=== PATIENT | female | born 1955 | race Caucasian/White ===

== ENCOUNTER 2016-12-22 05:11 | Inpatient (IN) | payer BC ==
[~2016-12-22] VITALS: Ht 165.1 cm; Wt 84.0 kg
[2016-12-22] VITALS (51 sets, daily range): BP systolic 108–153; BP diastolic 57–79; PULSE 60–87; RESP 12–21; TEMP 98.3; Ht 165.1 cm; Wt 84.0 kg
[2016-12-22] MEDS ORDERED: SOD CHLORIDE 0.9% 1,000 ML IV STA (05:23)
[2016-12-22] MEDS ORDERED: PROPOFOL 1000 MG INJ ONE (05:30)
[2016-12-22] MEDS ORDERED: PROPOFOL 100 ML IV ONE (05:30)
[2016-12-22 05:35] LABS: ADD SCAN DIFF NO
[2016-12-22 05:38] LABS: ABNORMAL IP MESSAGE 1; BASOPHIL # 0.1 10^3/ul (0.0-0.1); BASOPHILS % 0.6 % (0.0-2.0); EOSINOPHILS # 0.4 10^3/ul (0.0-0.5); EOSINOPHILS % 2.2 % (0.0-7.0); HEMATOCRIT 40.7 % (37.0-47.0); HEMOGLOBIN 13.3 g/dl (12.0-16.0); LYMPHOCYTES # 8.7 10^3/ul (0.8-2.9); MEAN CORPUSCULAR HEMOGLOBIN 30.3 pg (29.0-33.0); MEAN CORPUSCULAR HGB CONC 32.7 g/dl (32.0-37.0); MEAN CORPUSCULAR VOLUME 92.7 fl (82.0-101.0); MEAN PLATELET VOLUME 11.4 fl (7.4-10.4); MONOCYTE # 0.9 10^3/ul (0.3-0.9); MONOCYTES % 5.9 % (0.0-11.0); NEUTROPHIL # 5.5 10^3/ul (1.6-7.5); PLATELET COUNT 269 10^3/UL (140-415); RED BLOOD COUNT 4.39 10^6/ul (4.20-5.40); RED CELL DISTRIBUTION WIDTH 11.9 % (11.5-14.5); WHITE BLOOD COUNT 15.6 10^3/ul (4.8-10.8)
[2016-12-22 05:52] LABS: ALBUMIN 4.2 g/dl (3.3-4.9)
[2016-12-22 05:53] LABS: CHLORIDE 112 mmol/L (97-110); INR 0.89; POTASSIUM 3.5 mmol/L (3.5-5.1); PT RATIO 0.9; SODIUM 143 mmol/L (135-144)
[2016-12-22 05:54] LABS: PARTIAL THROMBOPLASTIN TIME 27.7 Sec (25.0-35.0)
[2016-12-22 05:55] LABS: ALKALINE PHOSPHATASE 71 IU/L (42-121); ANION GAP 9 (8-16); ASPARTATE AMINO TRANSFERASE 30 IU/L (15-46); BILIRUBIN,INDIRECT 0.5 mg/dl (0-1.1); BILIRUBIN,TOTAL 0.5 mg/dl (0.2-1.3); BLOOD UREA NITROGEN 15 mg/dl (7-20); CARBON DIOXIDE 26 mmol/L (21-31); CREATININE 0.88 mg/dl (0.44-1.00); TOTAL PROTEIN 7.2 g/dl (6.1-8.1)
[2016-12-22 05:56] LABS: ALANINE AMINOTRANSFERASE 51 IU/L (13-69); CALCIUM 9.2 mg/dl (8.4-10.2); GLUCOSE 215 mg/dl (70-220)
[2016-12-22 06:03] LABS: ACETAMINOPHEN < 10.0 ug/ml (10.0-30.0); ETHANOL < 10.0 mg/dl; SALICYLATE < 1.0 mg/dl (5.0-30.0)
--- NOTE | 2016-12-22 06:07 | EN ---
Date/Time of Note Date/Time of Note DATE: 12/22/16 TIME: 06:03 ER Progress Note The patient arrived to the ER with altered mental status. She was last seen well at 12 AM. The woke up around 4 AM and noted the was altered and having trouble breathing, foaming at the mouth. She was brought in by the EMS, Accu-Chek was within normal range according the surveying crew stake runner. She was admitted intubated without any difficulty She was treated with etomidate 20 mg IV, rocuronium 80 mg IV Endotracheal Intubation by me: Pre assessment performed. See preceding note for details. Pre-oxygenation performed with 100% oxygen RSI: Performed w/o complication or hypoxic events. Medications as ordered. Blade: [place] Scope ET Tube: 7.5 cm Depth: 22 cm at the lip Intubation confirmed by colorimetric CO2, equal breath sounds, quiet over the stomach. Chest X-ray 1V Interpreted by me: ET tube was in the right mainstem, it was pulled back about 2 cm. Normal soft tissue, No pneumothorax. I have order for NG tube, Miner catheter, propofol drip for sedation I have now transferred the care to the oncoming physician Dr. Walsh at 6 AM CHARLES DOMINGUEZ MD December 22, 2016 06:07
--- NOTE | 2016-12-22 06:08 | RADRPT ---
PROCEDURE: CT BRAIN WITHOUT CONTRAST CLINICAL INDICATION: 61-year-old female with altered mental status. TECHNIQUE: The study was performed utilizing a GE Quantopianpeed VCT 64-slice CT scanner. Direct axia l sections were obtained from the foramen magnum to the vertex without the use of intravenous contra st material. Sagittal and coronal reformations were obtained. One or more the following dose reduct ion techniques were utilized: automated exposure control, adjustment of the mA and/or kV according t o patient's size or use of iterative reconstruction technique. The images were viewed on a PACS [facility]. CTD/vol = 45.0 mGy; Total Exam DLP = 720.2 mGy-cm. COMPARISON: None. FINDINGS: There is a large left frontoparietal ovoid intracranial hemorrhage measuring approximately 5.6 x 8.3 x 5.2 cm with surrounding edema and mass effect. There is effacement of the left lateral ventricle with uvjf-rd-sanbs midline shift of approximately 18 mm consistent with subfalcine herniation. Ther e is mild asymmetric enlargement of the right lateral ventricle which presumably is trapped. The bon y calvarium is intact. Polypoidal mucosal thickening is seen within the partially visualized inferio r right maxillary sinus. No air-fluid levels are noted. The mastoid air cells are without signific ant soft tissue. IMPRESSION: Large left frontal-parietal intracranial hemorrhage with surrounding edema and mass effect resulting in [id number]-az-zngni midline shift of 18 mm consistent with subfalcine herniation. CRITICAL RESULTS: A call report was made to [facility] ER Dr. Walsh on December 22, 2016 at 06:03 a.m.. .Meir Saleh MD, Date Time Electronically viewed and signed by .Meir Saleh MD, MD on 12/22/2016 06:07 .M/
[2016-12-22] MEDS ORDERED: LEVETIRACETAM 500 MG (PMX) 100 ML IVPB ONE (06:30)
--- NOTE | 2016-12-22 06:47 | RADRPT ---
PROCEDURE: CHEST - 1 VIEW CLINICAL INDICATION: 61-year-old female with altered level of consciousness and intubation. TECHNIQUE: A single frontal AP portable view of the chest was performed. The images were reviewed on a PACS workstation. COMPARISON: Chest x-ray July 08, 2008. FINDINGS: There is an endotracheal tube identified with the tip in the right mainstem bronchus approximately 5 mm below the az. There is a nasogastric tube visualized which extends to the distal esophagus and is looped back and extends back into the neck. The cardiomediastinal silhouette is mildly enlar ged. There is a shallow inspiration. There is mild pulmonary vascular congestion. There is bilate ral lower lung zone subsegmental atelectasis. There is no definite focal infiltrate. There is no ev idence for pneumothorax. The osseous structures are intact. IMPRESSION: 1. Endotracheal tube with the tip in the right mainstem bronchus approximate 5 mm below the az. 2. Nasogastric tube looped within the distal esophagus extending back into the neck. This should b e pulled out and replaced. 3. Shallow inspiration. 4. Mild pulmonary vascular congestion. 5. Mild bilateral lower lung zone subsegmental atelectasis. CALL REPORT: A call report was made to [facility] ER Dr. Walsh on December 22, 2016 at 06:38 a.m. .Meir Saleh MD, Date Time Electronically viewed and signed by .Meir Saleh MD, on 12/22/2016 06:46 .M/
--- NOTE | 2016-12-22 06:52 | ERA ---
ER Documentation Chief Complaint Date/Time DATE: 12/22/16 TIME: 607 Chief Complaint bib ra 39 c/o ALOC; LKW 0000, snoring resps, vomit pos aspiration HPI 61-year-old female presents to the emergency department by ambulance with altered level of consciousness. Patient is obtunded and comatose and unable to provide history. History is available for my conversations with paramedics and . Patient's last known well time was midnight on 12/21/2016. She went to bed feeling fine with no headache or significant concerns. Sometime around 4 AM, the noted "abnormal behavior." Was unclear if he was describing seizure activity. She began to vomit. She had an altered mental status and the paramedics were called. I have reviewed the thermoplastic technician pre-hospital care. Pre-hospital vital signs were reviewed. Pre-hospital diagnostic tests were reviewed. Upon arrival, patient arrived in extremis. She was apneic and decerebrate posturing. ROS All systems reviewed and are negative except as per history of present illness. Allergies Allergies: Coded Allergies: No Known Allergies (Verified Allergy, Mild, 12/22/16) PMhx/Soc History of Surgery: Yes (gallbladder removed 2006) Hx Neurological Disorder: No Hx Cardiac Disorders: Yes (htn- not medicated) Hx Miscellaneous Medical Probl: Yes (hyperglycemia- not medicated) Hx Alcohol Use: No Hx Substance Use: No Hx Tobacco Use: Yes Smoking Status: Current every day smoker FmHx Noncontributory for chief complaint with family at bedside. Physical Exam Vitals Vital Signs Date Time Temp Pulse Resp B/P Pulse Ox O2 Delivery O2 Flow Rate FiO2 12/22/16 06:30 98.3 62 20 174/107 100 Mechanical Ventilator 10.0 12/22/16 06:15 61 14 177/86 100 Mechanical Ventilator 12/22/16 06:05 63 12 100 40 12/22/16 05:55 71 14 155/82 100 Mechanical Ventilator 12/22/16 05:50 72 14 180/108 100 Mechanical Ventilator 12/22/16 05:45 75 14 207/90 100 Mechanical Ventilator 12/22/16 05:40 72 14 193/110 100 Mechanical Ventilator 12/22/16 05:35 77 14 186/95 100 Mechanical Ventilator 12/22/16 05:31 51 14 210/121 100 Mechanical Ventilator 12/22/16 05:29 97.3 68 10 210/175 100 12/22/16 05:26 48 12 169/126 100 Mechanical Ventilator 12/22/16 05:18 97.8 68 36 210/175 100 Mechanical Ventilator 12/22/16 05:15 53 12 100 100 Physical Exam GENERAL: Patient arrives in extremis. HEENT: Pupils equal, round, and reactive to light. EOMI. There is no scleral icterus. Airway intubated NECK: C-spine is soft and supple, there is no meningismus. There is no cervical lymphadenopathy. LUNGS: Patient intubated and being assisted via ventilator HEART: Regular rate and rhythm, no murmurs, clicks, rubs or gallops. ABDOMEN: Soft, non-tender, non-distended. There are bowel sounds in all four quadrants. No rebound or guarding. EXTREMITIES: There is no peripheral cyanosis or edema. No focal swelling or erythema. NEURO: Patient is status post paralysis and sedation from intubation. Upon arrival, patient was a GCS of 111. Patient had decerebrate posturing. No further purposeful movement has been noted. SKIN: There is no apparent rash or petechiae. HEME/LYMPHATIC: There is no evidence of excessive bruising or lymphedema. PSYCHIATRIC: Patient is comatose Result Diagram: 12/22/16 0525 12/22/16 0525 Results 24 hrs Laboratory Tests Test 12/22/16 05:24 12/22/16 05:25 Bedside Glucose 230mg/dL White Blood Count 15.610^3/ul Red Blood Count 4.3910^6/ul Hemoglobin 13.3g/dl Hematocrit 40.7% Mean Corpuscular Volume 92.7fl Mean Corpuscular Hemoglobin 30.3pg Mean Corpuscular Hemoglobin Concent 32.7g/dl Red Cell Distribution Width 11.9% Platelet Count 07680^3/UL Mean Platelet Volume 11.4fl Neutrophils % 35.0% Lymphocytes % 56.0% Monocytes % 5.9% Eosinophils % 2.2% Basophils % 0.6% Nucleated Red Blood Cells % 0.0/100WBC Neutrophils # 5.510^3/ul Lymphocytes # 8.710^3/ul Monocytes # 0.910^3/ul Eosinophils # 0.410^3/ul Basophils # 0.110^3/ul Nucleated Red Blood Cells # 0.010^3/ul Prothrombin Time 12.0Sec Prothrombin Time Ratio 0.9 INR International Normalized Ratio 0.89 Activated Partial Thromboplast Time 27.7Sec Sodium Level 143mmol/L Potassium Level 3.5mmol/L Chloride Level 112mmol/L Carbon Dioxide Level 26mmol/L Anion Gap 9 Blood Urea Nitrogen 15mg/dl Creatinine 0.88mg/dl Glucose Level 215mg/dl Lactic Acid Level 2.9mmol/L Calcium Level 9.2mg/dl Total Bilirubin 0.5mg/dl Direct Bilirubin 0.00mg/dl Indirect Bilirubin 0.5mg/dl Aspartate Amino Transf (AST/SGOT) 30IU/L Alanine Aminotransferase (ALT/SGPT) 51IU/L Alkaline Phosphatase 71IU/L Total Protein 7.2g/dl Albumin 4.2g/dl Globulin 3.00g/dl Albumin/Globulin Ratio 1.40 Salicylates Level < 1.0mg/dl Acetaminophen Level < 10.0ug/ml Ethyl Alcohol Level < 10.0mg/dl Current Medications Medications (Trade) Dose Ordered Sig/Ashli Route PRN Reason Start Time Stop Time Status Last Admin Dose Admin Sodium Chloride 1,000 ml @ 1,000 mls/hr Q1H STAT IV 12/22/16 05:23 12/22/16 06:22 Cancel Propofol 100 ml @ 0 mls/hr TITRATE ONCE IV 12/22/16 05:30 12/22/16 05:33 DC 12/22/16 06:05 Levetiracetam (Keppra 500 Mg/ 100ml (Pmx)) 100 ml @ 400 mls/hr ONCE ONCE IVPB 12/22/16 06:30 12/22/16 06:44 DC 12/22/16 06:40 Mannitol (Mannitol 25%) 12.5 gm ONCE ONCE IV* 12/22/16 07:00 12/22/16 07:01 Procedures/MDM Patient was taken to a room, seen and evaluated. Comfort measures were initiated. Diagnostic tests were ordered and reviewed. 3 LEAD RHYTHM STRIP: Normal sinus rhythm without ectopy EK lead EKG reviewed by myself: Normal Sinus Rhythm Normal [place] and intervals No ST elevation, depression, or T wave inversion Impression: Normal EKG RADIOLOGY: reviewed with the radiologist CONSULTATION: hospitalist was notified for admission. Neurosurgical consultation was obtained as soon as CT scan was reviewed. I have been in communication with the neurosurgeon regarding prognostic possible therapeutic options REEVALUATION: Patient is remained sedated. Blood pressure has been noted to be improving and seems to be stabilizing around 170s systolic. I would like to put the blood pressure at approximately 160 systolic. I have ordered mannitol and continue to monitor the blood pressure with further intervention is necessary. No further neurologic status improvement has been noted. MEDICAL DECISION MAKING: This is an unfortunate 61-year-old female who arrives to the emergency department after a significant intracranial event. Patient shows evidence of a significant intracranial hemorrhage with catastrophic results. Patient is required intubation for airway protection. Patient has received aggressive medical management including blood pressure control with mannitol as well as antiepileptic medications. However, patient has a significantly poor prognosis at this time given the patient's presenting neurologic features. Patient will be admitted to the intensive care unit pending further consultation with neurosurgical consultation and further conversations with his family. CRITICAL CARE: Time:>35 minutes Patient has a significant chance of clinical deterioration Treatments/Evaluations: Close monitoring and treatment of unstable vital signs, cardiorespiratory, and neurologic status, while maintaining tight balance of fluid, respiratory, and cardiac interventions. Departure Diagnosis: Primary Impression: Intracranial hemorrhage Additional Impressions: Respiratory arrest Coma Condition: Critical BULMAROSHANTELL CASIANO December 22, 2016 06:52
[2016-12-22] MEDS ORDERED: MANNITOL 25% 50 ML INJ IV* ONE (07:00)
[2016-12-22 07:35] LABS: ADD UMIC NO; URINE BILIRUBIN (Dip) NEGATIVE (NEGATIVE); URINE BLOOD (Dip) NEGATIVE (NEGATIVE); URINE COLOR LT. YELLOW (YELLOW); URINE GLUCOSE (Dip) NEGATIVE (NEGATIVE); URINE KETONES (Dip) NEGATIVE (NEGATIVE); URINE LEUKOCYTE ESTERASE (Dip) NEGATIVE (NEGATIVE); URINE NITRITE (Dip) NEGATIVE (NEGATIVE); URINE TOTAL PROTEIN (Dip) NEGATIVE (NEGATIVE); URINE UROBILINOGEN (Dip) 0.2 E.U./dL (0.1-1.0)
[2016-12-22 07:59] LABS: BARBITURATES Negative (NEGATIVE); BENZODIAZEPINES Negative (NEGATIVE); CANNABINOIDS Negative (NEGATIVE); COCAINE Negative (NEGATIVE)
[2016-12-22] MEDS ORDERED: DEXTROSE 5%-0.45% NACL 1,000 ML IV SCH (07:59)
[2016-12-22] MEDS ORDERED: ONDANSETRON 4 MG INJ IV PRN ×2 (08:00→13:00)
[2016-12-22] MEDS ORDERED: MAGNESIUM HYDROXIDE 30ML CUP PO PRN (08:00)
[2016-12-22] MEDS ORDERED: ACETAMINOPHEN 650MG/20.3ML CUP PO PRN (08:00)
[2016-12-22] MEDS ORDERED: ACETAMINOPHEN 325 MG TAB PO PRN ×2 (08:00→13:00)
[2016-12-22] MEDS ORDERED: morphine 2 MG INJ IV PRN (08:00)
[2016-12-22] MEDS ORDERED: ALBUTEROL/IPRATROPIUM (NEB) 3 ML AMP NEB PRN (08:00)
[2016-12-22] MEDS ORDERED: ACETAMINOPHEN 650 MG SUPP PR PRN (08:00)
[2016-12-22 08:02] LABS: OPIATES Negative (NEGATIVE)
[2016-12-22] MEDS: DOCUSATE SODIUM 100 MG CAP PO SCH ×2 (09:00→21:00)
[2016-12-22 09:05] LABS: ADD SCAN DIFF NO
[2016-12-22] MEDS ORDERED: ROCURONIUM 50 MG INJ ONE (09:10)
[2016-12-22 09:15] LABS: BASOPHIL # 0.1 10^3/ul (0.0-0.1); BASOPHILS % 0.4 % (0.0-2.0); EOSINOPHILS % 0.2 % (0.0-7.0); HEMATOCRIT 40.6 % (37.0-47.0); HEMOGLOBIN 13.1 g/dl (12.0-16.0); LYMPHOCYTES # 2.3 10^3/ul (0.8-2.9); LYMPHOCYTES % 14.1 % (15.0-51.0); MEAN CORPUSCULAR HGB CONC 32.3 g/dl (32.0-37.0); MEAN CORPUSCULAR VOLUME 92.9 fl (82.0-101.0); MEAN PLATELET VOLUME 11.2 fl (7.4-10.4); MONOCYTE # 0.9 10^3/ul (0.3-0.9); MONOCYTES % 5.6 % (0.0-11.0); NEUTROPHIL # 13.2 10^3/ul (1.6-7.5); NEUTROPHILS % 79.3 % (39.0-77.0); PLATELET COUNT 237 10^3/UL (140-415); RED BLOOD COUNT 4.37 10^6/ul (4.20-5.40); RED CELL DISTRIBUTION WIDTH 11.9 % (11.5-14.5); WHITE BLOOD COUNT 16.6 10^3/ul (4.8-10.8)
[2016-12-22] MEDS ORDERED: CEFAZOLIN 1 GM INJ ONE (09:20)
[2016-12-22] MEDS ORDERED: POLYMYXIN/BACITRACIN 1L IRRIG ONE (09:22)
[2016-12-22] MEDS ORDERED: BACITRACIN/POLYMYXIN 28.35 GM OINT TOP ONE (09:22)
[2016-12-22] MEDS ORDERED: BUPIVACAINE 0.5%/EPI (SDV) 30 ML INJ ONE (09:23)
[2016-12-22] MEDS ORDERED: THROMBIN 5000 UNIT VIAL ONE ×3 (09:54→10:32)
[2016-12-22] MEDS ORDERED: GELATIN SIZE 100 SPONGE ONE (09:54)
[2016-12-22 10:22] LABS: AADO2 Arterial 172.8 mmHg (7.0-24.0); Arterial Base Excess -3.4 mmol/L (-3.0-3); Arterial COHb 0.6 % (0.0-3.0); Arterial Fraction of Oxyhgb 98.6 % (93.0-99.0); Arterial HCO3 21.6 mmol/L (22.0-26.0); Arterial MetHb 0.2 % (0.0-1.5); Arterial Total Hemglobin 13.1 g/dl (12.0-18.0); MODE VENT - AC
[2016-12-22] MEDS ORDERED: EPHEDrine SULFATE 50 MG/5 ML SYG ONE (10:33)
[2016-12-22] MEDS ORDERED: HEMOSTATIC MATRIX SYG ZFS ONE (11:05)
[2016-12-22 11:18] LABS: ADD SCAN DIFF NO
[2016-12-22 11:21] LABS: BASOPHILS % 0.3 % (0.0-2.0); EOSINOPHILS % 0.3 % (0.0-7.0); HEMATOCRIT 32.6 % (37.0-47.0); HEMOGLOBIN 10.7 g/dl (12.0-16.0); LYMPHOCYTES # 1.6 10^3/ul (0.8-2.9); LYMPHOCYTES % 11.9 % (15.0-51.0); MEAN CORPUSCULAR HEMOGLOBIN 30.1 pg (29.0-33.0); MEAN CORPUSCULAR HGB CONC 32.8 g/dl (32.0-37.0); MEAN CORPUSCULAR VOLUME 91.6 fl (82.0-101.0); MEAN PLATELET VOLUME 10.9 fl (7.4-10.4); MONOCYTE # 0.8 10^3/ul (0.3-0.9); NEUTROPHILS % 81.1 % (39.0-77.0); PLATELET COUNT 194 10^3/UL (140-415); RED BLOOD COUNT 3.56 10^6/ul (4.20-5.40); RED CELL DISTRIBUTION WIDTH 11.9 % (11.5-14.5); WHITE BLOOD COUNT 13.6 10^3/ul (4.8-10.8)
[2016-12-22] MEDS: PROPOFOL 100 ML IV SCH ×3 (11:30→22:10)
[2016-12-22] MEDS ORDERED: hydrALAzine 20 MG INJ IV PRN (11:30)
[2016-12-22] MEDS ORDERED: LABETALOL HCL 20MG INJ IV PRN (11:30)
[2016-12-22] MEDS ORDERED: HYDROmorphONE 1 MG/ML SYG IV PRN (11:30)
--- NOTE | 2016-12-22 11:39 | CONS ---
DATE OF ADMISSION: 12/22/2016 DATE OF CONSULTATION: 12/22/2016 NEUROSURGICAL CONSULTATION REQUESTING PHYSICIAN: Papi Walsh INDICATION FOR CONSULTATION: Intracranial hemorrhage. HISTORY OF PRESENT ILLNESS: The patient is a 61-year-old right-handed female who was brought to the emergency department with decreased level of consciousness. The patient is currently intubated and comatose and unable to give history. History is obtained from the patient's and daughter. The patient was last known well last night, on 12/21/2016. The patient reportedly had no complaints of headaches or any complaints. The states that around 4:00, the patient was noted to have some abnormal behavior and began vomiting and had decreased level of consciousness. In the ER the patient was apneic and decerebrate posturing and was intubated. The patient had been on paralytics and sedation as well as propofol; however, with this turned off, the patient gradually did show some neurologic function. The patient is intubated, unable to give further history. Per the patient's family , the patient did not take any blood thinning medications and there were no previous complaints or past history of stroke. REVIEW OF SYSTEMS: Unable to obtain secondary to patient's neurologic condition , but based upon family history, no reported recent constitutional issues like fevers, chills, or weight loss. Hematologic: No history of easy bruising or bleeding. ALLERGIES: NO KNOWN DRUG ALLERGIES. PAST MEDICAL HISTORY: Significant for hypertension. PAST SURGICAL HISTORY: The patient has a cholecystectomy in 2006. SOCIAL HISTORY: The patient is a current smoker and does not drink alcohol. She is . FAMILY HISTORY: No reported history of easy bruising or bleeding. PHYSICAL EXAMINATION: VITAL SIGNS: The patient's temperature 98.3, pulse 71, respirations 20, blood pressure 130/108, saturating 100% on FIO2 of 40%. GENERAL: The patient is an obese, late middle-aged female lying in a hospital bed. HEAD AND NECK: Normocephalic, atraumatic. CARDIAC: Regular rate and rhythm. LUNGS: Clear to auscultation bilaterally, being assisted ventilation. ABDOMEN: Nontender, nondistended, soft. EXTREMITIES: No clubbing, cyanosis, or edema. NEUROLOGIC: With propofol turned off, the patient does not open her eyes to pain or noxious stimuli, her left pupil is 5 mm, slightly irregular, and nonreactive. Her right reacts 3 to 2 mm. The patient does not have corneal repeat reflexes. She does not clearly have a gag. The patient decerebrate postures on the left side, but with the right arm, it may be more of a decorticate posturing. LABORATORIES: White count 15.6, hemoglobin 13.3, platelets 269. Coagulation profile 12, INR 0.89, aPTT 27.7. Tox screen was negative. Sodium 143, BUN and creatinine 15 and 0.88 with a glucose of 280. REVIEW OF RADIOGRAPHIC RESULTS: I reviewed the patient's CT scan as well as the radiologist's result. The radiologist's impression: There is a large left frontoparietal intracranial hemorrhage with surrounding edema and mass effect resulting in left to right midline shift of 18 mm, consistent with subfalcine herniation. The bleed is large and measures 5.6 x 8.3 x 5.2 cm with some slight intraventricular blood and subfalcine herniation. ASSESSMENT AND PLAN: A 61-year-old female with massive left-sided hemorrhagic stroke. I discussed the patient's signs, symptoms, physical examination, and radiographic findings with the patient's family, specifically her daughter who is a physician. I explained that the patient has a massive bleed and was likely deteriorating. I explained that surgical decompression or operation would not likely benefit this patient as to leave him with a quality of life that generally would be considered acceptable by most patients. The patient will likely progress to brain though she has been sustained and given mannitol treat at the moment. The patient's daughter states that she may want aggressive treatment, and she is currently in the process of deciding whether or not to pursue surgical intervention. For the meantime, the patient will be kept with blood pressure controlled. She has been given Keppra and mannitol. Thank you for allowing to participate in the care of this patient. Dictated By: JOSE NAVARRETE MD, LG/TRAVON Conf#: [id number] DID#: [id number] MTDD
[2016-12-22] MEDS ORDERED: D5-NS + KCL 20 MEQ 1,000 ML IV SCH (12:39)
[2016-12-22] MEDS ORDERED: MANNITOL 25% 50 ML INJ IV* SCH (13:00)
--- NOTE | 2016-12-22 13:29 | OPR ---
Date/Time of Note Date/Time of Note DATE: 12/22/16 TIME: 13:23 Operative Report Preoperative Diagnosis Left frontal temporal intracranial hemorrhage. Postoperative Diagnosis Left frontal temporal intracranial hemorrhage. Operation Performed Craniotomy for evacuation of intracranial hemorrhage. Surgeon: JOSE NAVARRETE MD Anesthesia: general Anesthesiologist: CHRISTOPHER FOURNIER MD Estimated Blood Loss: other (400 ml) Specimens none Tubes/Drains none Complications none Pt Condition Post Procedure: critical Disposition: other (ICU) Operative\Procedure Findings large acute ICH. JOSE NAVARRETE MD December 22, 2016 13:29
[2016-12-22] MEDS: CEFAZOLIN 2 GM/50 ML (PMX) 50 ML IVPB SCH ×2 (14:00→21:34)
[2016-12-22 14:15] LABS: ALBUMIN 4.2 g/dl (3.3-4.9); ALBUMIN/GLOBULIN RATIO 1.31; CALCIUM 8.6 mg/dl (8.4-10.2); CREATININE 0.74 mg/dl (0.44-1.00); POTASSIUM 4.5 mmol/L (3.5-5.1); TOTAL PROTEIN 7.4 g/dl (6.1-8.1)
[2016-12-22] MEDS ORDERED: LORAZEPAM 2 MG INJ IV PRN (15:00)
--- NOTE | 2016-12-22 15:40 | HP ---
DATE OF ADMISSION: 12/22/2016 CHIEF COMPLAINT: Brought in by ambulance for acute altered level of consciousness and vomiting. HISTORY OF PRESENT ILLNESS: A 61-year-old female with past medical history, based on records, of hy perglycemia and essential hypertension, who was found to be obtunded and comatose and unable to prov linette full history today. Most of the information is obtained from the ER documentation, as the patie nt is presently in the ICU intubated. According to conversation with the family by the ER staff, salbador haq patient was last known to be at her normal mental status around midnight on 12/22/2016. She had w ent to bed feeling fine with no headaches or concerns, but around 4 a.m. the noticed that salbador haq patient was having "abnormal behavior," possible seizure activity. She was also having vomiting s ymptoms and apparently was foaming at the mouth. The family became concerned and decided to have salbador haq patient come into the ER. In the ER, the patient was found to be decerebrate and apneic and she h ad to be intubated. When they did a head CT scan, it unfortunately showed the following: A large l eft frontoparietal intracranial hemorrhage with surrounding edema and mass-effect resulting in a lef t to right midline shift of about 18 mm, consistent with a subfalcine herniation, and the neurosurge on was called to come evaluate the patient as well. Full review of systems cannot be obtained other than what was mentioned above. PAST MEDICAL HISTORY: As stated above. ALLERGIES: NO KNOWN DRUG ALLERGIES. HOME MEDICATIONS: Unknown at this time. PAST SURGICAL HISTORY: Per records, she has had a cholecystectomy in the past. SOCIAL HISTORY: Per records, she is a current every day smoker. It is unclear how many years she has been smoking. Denies alcohol use or IV drug abuse. FAMILY HISTORY: Noncontributory. PHYSICAL EXAMINATION: VITAL SIGNS: Today, T-max 98.3, pulse of 48 to 75, respirations 10 to 36, blood pressure was 155 to 210 systolic over 82 to 175 diastolic, saturating at 100% on mechanical ventilation, FIO2 of 40%. GENERAL: The patient is lying in bed, intubated. HEENT: Unable to fully assess at this time. NECK: Supple, no thyromegaly. LUNGS: Distant breath sounds bilaterally. CARDIOVASCULAR: S1, S2 heard. No rubs or gallops. ABDOMEN: Soft, nontender, nondistended. Normal bowel sounds. No rebound or guarding. MUSCULOSKELETAL: No lower extremity edema bilaterally. NEUROLOGIC: Again, patient is status post paralysis and sedated from intubation, so unable to fully assess neurologic status at this time. LABORATORIES: The comprehensive metabolic panel is normal. The CBC showed a WBC of 15.6, hemoglobi n 13.3, hematocrit 40.7, platelets of 269. Coags are normal. The UA was negative for nitrites, neg ative for leukocyte esterase. U-tox is negative. Aspirin level, Tylenol level, and blood alcohol l evel all within normal limits. We mentioned the head CT results above and the chest x-ray showed mi ld pulmonary vascular congestion. ASSESSMENT AND PLAN: This is an unfortunate 61-year-old female with a massive left-sided hemorrhagi c stroke. 1. Left-sided hemorrhagic stroke. The patient will be in the intensive care unit per discussion wi Neurosurgery Team, the patient will undergo surgical procedure later today, as the family still w ants have operation performed including a possible craniotomy for evacuation of intracranial hemorrh age. We will continue blood pressure medicines to help control the blood pressure very carefully to prevent any further extension of the intracranial hemorrhage. Again, unfortunately, it is large an d there is already a midline shift as well. Consider Neurology consult as well and do neurologic ch ecks as well every 4 hours. Avoid all anticoagulants. Consider checking thyroid stimulating hormon e, A1c, and lipid panel. Follow up postop recommendations from Neurosurgery Team. Again, will get a Neurology consult as well. May need to start the patient on anti-seizure medicines, although the re have not been any seizures noted at this time. We will go ahead and order for Ativan 1 mg every 1 hour p.r.n. The patient has also been ordered for mannitol per Neurosurgery recommendations as we ll. 2. Respiratory distress. Again, intubated secondary to number 1. Continue mechanical ventilation, get Pulmonary consult as well to help with ventilator management as well. 3. Hypertension. Again, see number 1. Continue current blood pressure medicines. The patient is on hydralazine and labetalol p.r.n. 4. Gastrointestinal prophylaxis. We will add H2 chrissy. 5. Deep venous thrombosis prophylaxis. Proton pump inhibitor . 6. Deep venous thrombosis prophylaxis, sequential compression devices. Dictated By: KRYS MCCARTHY Conf#: [id number] DID#: [id number]
[2016-12-22] MEDS: MANNITOL 25% 50 ML INJ IV* SCH ×2 (16:02→21:34)
[2016-12-22] MEDS ORDERED: ACETAMINOPHEN (10 MG/ML) IV SYG IV* PRN (20:30)
[2016-12-22] MEDS: NS + KCL 20 MEQ 1,000 ML IV SCH (20:44)
[2016-12-22] MEDS: ACETAMINOPHEN 1000MG/100ML IV 50 ML IVPB PRN (21:04)
[2016-12-23] VITALS (83 sets, daily range): BP systolic 106–164; BP diastolic 53–79; PULSE 78–117; RESP 12–32
[2016-12-23] MEDS: MANNITOL 25% 50 ML INJ IV* SCH ×4 (03:40→18:42)
[2016-12-23] MEDS: CEFAZOLIN 2 GM/50 ML (PMX) 50 ML IVPB SCH (05:14)
[2016-12-23] MEDS ORDERED: PANTOPRAZOLE (EC) 40 MG TAB PO SCH (06:00)
[2016-12-23] MEDS: PANTOPRAZOLE 40 MG INJ IV SCH (06:26)
[2016-12-23 06:39] LABS: ADD SCAN DIFF NO
[2016-12-23 06:54] LABS: BASOPHILS % 0.2 % (0.0-2.0); HEMATOCRIT 33.4 % (37.0-47.0); HEMOGLOBIN 10.9 g/dl (12.0-16.0); LYMPHOCYTES # 1.8 10^3/ul (0.8-2.9); LYMPHOCYTES % 8.1 % (15.0-51.0); MEAN CORPUSCULAR HEMOGLOBIN 29.8 pg (29.0-33.0); MEAN CORPUSCULAR HGB CONC 32.6 g/dl (32.0-37.0); MEAN CORPUSCULAR VOLUME 91.3 fl (82.0-101.0); MEAN PLATELET VOLUME 11.8 fl (7.4-10.4); MONOCYTE # 1.4 10^3/ul (0.3-0.9); MONOCYTES % 6.2 % (0.0-11.0); NEUTROPHIL # 18.9 10^3/ul (1.6-7.5); NEUTROPHILS % 84.8 % (39.0-77.0); PLATELET COUNT 238 10^3/UL (140-415); RED BLOOD COUNT 3.66 10^6/ul (4.20-5.40); RED CELL DISTRIBUTION WIDTH 12.5 % (11.5-14.5); WHITE BLOOD COUNT 22.3 10^3/ul (4.8-10.8)
[2016-12-23 07:22] LABS: CALCIUM 8.1 mg/dl (8.4-10.2); CREATININE 0.69 mg/dl (0.44-1.00); POTASSIUM 3.5 mmol/L (3.5-5.1)
--- NOTE | 2016-12-23 08:30 | PN ---
Date/Time of Note Date/Time of Note DATE: 12/23/16 TIME: 08:24 Assessment/Plan Lines/Catheters IV Catheter Type (from [facility]): Peripheral IV Miner in Place (from [facility]): Yes Assessment/Plan Chief Complaint/Hosp Course POD #1 s/p craniotomy for ICH evacuation. CT scan significantly improved. Base on scan would not place EVD or monitoring- follow with clinical exam. Will get MRI tomorrow AM for follow-up.CT sooner if exam changes. Prognosis remains extremely poor and expressed this to family but they wish to continue with aggressive management. Cont. Medical supportive care. Will cont.mannitol for edema. Problems: Subjective 24 Hr Interval Summary intubated.Comatose. Exam/Review of Systems Vital Signs Vitals Vital Signs Date Time Temp Pulse Resp B/P Pulse Ox O2 Delivery O2 Flow Rate FiO2 12/23/16 07:00 91 15 125/57 98 Mechanical Ventilator 12/23/16 06:15 98.5 12/23/16 05:10 40 12/22/16 07:30 10.0 Intake and Output 12/22/16 12/22/16 12/23/16 15:00 23:00 07:00 Intake Total 2970 ml 1170.55 ml 1520.90 ml Output Total 2070 ml 975 ml 925 ml Balance 900 ml 195.55 ml 595.90 ml Exam Head: other (incision dressed, clean, intact.) Neurological: other (No eye opening to voice, pain or spontaneously. PERRL. Eye horizontal rove conjugately. (+) cough. Right decoticate posture, left decerebrate. ) Results Result Diagram: 12/23/1630 12/23/[address] reviewed. Some recurrent/ residual frontal blood but significant decompression and improved shift.Stable small L lateral and minimal frontal IVH , no hydrocephalus. Diffuse edema vs infact as expected. SONYAELY,JOSE Kimble MD December 23, 2016 08:30
[2016-12-23 08:56] LABS: AADO2 Arterial 144.1 mmHg (7.0-24.0); Arterial Base Excess -2.7 mmol/L (-3.0-3); Arterial COHb 0.2 % (0.0-3.0); Arterial Fraction of Oxyhgb 96.8 % (93.0-99.0); Arterial MetHb 0.4 % (0.0-1.5); Arterial Total Hemglobin 11.1 g/dl (12.0-18.0); MODE VENT - AC
[2016-12-23] MEDS: DOCUSATE SODIUM 100 MG CAP PO SCH ×2 (09:00→19:42)
[2016-12-23 09:10] LABS: MAGNESIUM 1.6 mg/dl (1.7-2.5); PHOSPHORUS 2.6 mg/dl (2.5-4.9)
--- NOTE | 2016-12-23 09:17 | PN ---
Date/Time of Note Date/Time of Note DATE: 12/23/16 TIME: 09:01 Assessment/Plan VTE Prophylaxis VTE Prophylaxis Intervention: SCD's VTE Contraindication Reason: hemorrhagic cerebral infarction Lines/Catheters IV C[facility]ter Type ([facility] Peripheral IV Urinary Cath still in place: Yes Reason Cath still needed: other (indicate) Assessment/Plan Assessment/Plan This is an unfortunate 61-year-old female with a massive left-sided hemorrhagic stroke. 1. Large left-sided frontal parietal hemorrhagic stroke. * s/p craniotomy for ICH evacuation December 22, 2016 / no drain for now / patient on mannitol for edema per neurosurgery * Thought to be secondary to hypertension 2. Ventilator dependent respiratory failure secondary to #1: Remains ventilator dependent 3. Hypertensive emergency: Resolved / patient has good blood pressures right now / per family patient had no history of high blood pressure 4. Dyslipidemia chronic 5. Leukocytosis: Likely reactive 6. Hypomagnesemia: We will replace PLAN: * Continue ICU monitoring and care for now * Appreciate neurosurgical prompt input and management. Continue to follow recommendations. MRI planned for tomorrow. CT scan as needed * Continue vent management and weaning. Pulmonary consultation pending to assist in management * No current evidence of infection, plan for blood cultures as needed for fevers. * Replace electrolytes * Per neurosurgery, prognosis remains extremely poor and expressed this to family but they wish to continue with aggressive management. * Treatment plan discussed with family, questions answered. Prophylaxis: PPI/SCDs Critical care time: >35 minutes Subjective 24 Hr Interval Summary Free Text/Dictation Patient seen and evaluated. Spoke to at the bedside in detail. Patient is off propofol at this time, seems to be trying to wake up. Exam/Review of Systems Vital Signs Vitals Vital Signs Date Time Temp Pulse Resp B/P Pulse Ox O2 Delivery O2 Flow Rate FiO2 12/23/16 08:30 86 14 127/56 99 Mechanical Ventilator 12/23/16 08:00 98.3 12/23/16 07:45 40 12/22/16 07:30 10.0 Intake and Output 12/22/16 12/22/16 12/23/16 15:00 23:00 07:00 Intake Total 2970 ml 1170.55 ml 1520.90 ml Output Total 2070 ml 975 ml 925 ml Balance 900 ml 195.55 ml 595.90 ml Exam Constitutional: other (Propofol was just discontinued, patient seems to be moving both upper extremities and trying to open her eyes), No alert, No oriented Psych: other (Unable to assess) Eyes: other (Left foot peel is brisk, right is sluggish) ENMT: intubated Respiratory: clear to auscultation, normal air movement Cardiovascular: nl pulses, No murmurs/extra sounds, No regular rate and rhythm (Tachycardic) Gastrointestinal: bowel sounds, soft, No distended Genitourinary - Female: nl adnexae, nl external genitalia, other (Miner to bedside drainage with good urine output) Musculoskeletal: nl extremities to inspection Extremities: No edema Neurological: other (Unable to assess deficits at this time), unresponsive Skin: No rash or lesions Results Result Diagram: 12/23/1630 12/23/16 0530 Results 24 hrs Laboratory Tests Test 12/22/16 11:13 12/22/16 13:30 12/22/16 14:45 12/22/16 20:45 White Blood Count 13.6 H Red Blood Count 3.56 L Hemoglobin 10.7 L Hematocrit 32.6 L Mean Corpuscular Volume 91.6 Mean Corpuscular Hemoglobin 30.1 Mean Corpuscular Hemoglobin Concent 32.8 Red Cell Distribution Width 11.9 Platelet Count 194 Mean Platelet Volume 10.9 H Neutrophils % 81.1 H Lymphocytes % 11.9 L Monocytes % 6.0 Eosinophils % 0.3 Basophils % 0.3 Nucleated Red Blood Cells % 0.0 Neutrophils # 11.0 H Lymphocytes # 1.6 Monocytes # 0.8 Eosinophils # 0.0 Basophils # 0.0 Nucleated Red Blood Cells # 0.0 Sodium Level 143 Potassium Level 4.5 Chloride Level 106 Carbon Dioxide Level 21 Anion Gap 21 #H Blood Urea Nitrogen 12 Creatinine 0.74 Glucose Level 111 # Calcium Level 8.6 Total Bilirubin 1.0 Direct Bilirubin 0.00 Indirect Bilirubin 1.0 Aspartate Amino Transf (AST/SGOT) 53 H Alanine Aminotransferase (ALT/SGPT) 48 Alkaline Phosphatase 76 Total Protein 7.4 Albumin 4.2 Globulin 3.20 Albumin/Globulin Ratio 1.31 Osmolality 291 286 Test 12/23/16 01:00 12/23/16 05:30 12/23/16 08:40 Osmolality 285 White Blood Count 22.3 #H Red Blood Count 3.66 L Hemoglobin 10.9 L Hematocrit 33.4 L Mean Corpuscular Volume 91.3 Mean Corpuscular Hemoglobin 29.8 Mean Corpuscular Hemoglobin Concent 32.6 Red Cell Distribution Width 12.5 Platelet Count 238 # Mean Platelet Volume 11.8 H Neutrophils % 84.8 H Lymphocytes % 8.1 L Monocytes % 6.2 Eosinophils % 0.0 Basophils % 0.2 Nucleated Red Blood Cells % 0.0 Neutrophils # 18.9 H Lymphocytes # 1.8 Monocytes # 1.4 H Eosinophils # 0.0 Basophils # 0.0 Nucleated Red Blood Cells # 0.0 Sodium Level 138 Potassium Level 3.5 Chloride Level 102 Carbon Dioxide Level 23 Anion Gap 17 H Blood Urea Nitrogen 8 Creatinine 0.69 Glucose Level 166 Calcium Level 8.1 L Blood Gas Specimen Source Blood arterial Arterial Blood Date Drawn 12/23/2016 8:43:17 AM Arterial Blood pH (Temp corrected) 7.467 H Arterial Blood pCO2 (Temp correct) 28.3 L Arterial Blood pO2 (Temp corrected) 108.6 H Arterial Blood HCO3 20.0 L Arterial Blood Base Excess -2.7 Arterial Blood Oxygen Saturation 97.4 Rafael Test N/A Arterial Blood Gas Puncture Site A-Line Arterial Blood Carboxyhemoglobin 0.2 Arterial Blood Methemoglobin 0.4 Blood Gas A-a O2 Differential 144.1 H Oxyhemoglobin Percent 96.8 Total Hemoglobin 11.1 L Blood Gas Temperature 37.0 Blood Gas Respiration Rate 12.0 Blood Gas Actual Respiration Rate 12 Blood Gas Modality VENT - AC FiO2 40.0 Blood Gas Tidal Volume 600.0 Blood Gas Low PEEP Setting 5.0 Blood Gas Notified Whom LS Blood Gas Notified Time 12/23/2016 8:56:38 AM Medications Medications Current Medications Acetaminophen (Tylenol Liquid) 650 mg Q6H PRN PO PAIN LEVEL 1-3 OR FEVER; Start 12/22/16 at 08:00 Acetaminophen (Tylenol Supp) [address] PAIN LEVEL 1-3 OR FEVER; Start 12/22/16 at 08:00 Magnesium Hydroxide (Milk Of Mag) 30 ml DAILY PRN PO CONSTIPATION; Start at 08:00 Pantoprazole (Protonix Iv) 40 mg DAILY@06 IV Last administered on 12/23/16t 06: 26; Admin Dose 40 MG; Start 12/23/16 at 06:00 Docusate Sodium 100 mg 100 mg BID PO ; Start 12/22/16 at 09:00 Propofol 100 ml @ 2.55 mls/hr Q12H IV Last administered on 12/22/16 22:10; Admin Dose 2.55 MLS/HR; Start 12/22/16 at 11:30 Cefazolin Sodium/ Dextrose (Ancef 2 Gm/50 ml (Pmx)) 50 ml @ 100 mls/hr Q8H IVPB Last administered on 12/23/16 05:14; Admin Dose 100 MLS/HR; Start at 13:00; Stop 12/23/16 at 12:59 Morphine Sulfate (morphine) 2 mg Q2H PRN IV PAIN LEVEL 6-10; Start 12/22/16 at 13:00 Acetaminophen (Tylenol Tab) 650 mg Q6H PRN PO PAIN AND OR ELEVATED TEMP; Start 12/22/16 at 13:00 Ondansetron HCl (Zofran Inj) 4 mg Q6H PRN IV NAUSEA AND/OR VOMITING; Start at 13:00 Pantoprazole (Protonix Tab) 40 mg DAILY@06 PO ; Start 12/23/16 at 06:00; Status Future Hold Lorazepam (Ativan) 1 mg Q1H PRN IV SEIZURES; Start 12/22/16 at 15:00 Mannitol 25 gm 25 gm Q6 IV* Last administered on 12/23/16 03:40; Admin Dose 25 GM; Start 12/22/16 at 16:02 Potassium Chloride/Sodium Chloride 1,000 ml @ 100 mls/hr Q10H IV Last administered on 12/22/16 20:44; Admin Dose 100 MLS/HR; Start 12/22/16 at 20:30 Acetaminophen (Ofirmev 1000mg/ 100ml Iv) 50 ml @ 200 mls/hr Q6H PRN IVPB FEVER Last administered on 12/22/16 21:04; Admin Dose 200 MLS/HR; Start at 21:00 Procedures Procedures PROCEDURE: CT BRAIN WITHOUT CONTRAST CLINICAL INDICATION: 61-year-old female with altered mental status. TECHNIQUE: The study was performed utilizing a eÇiftT 64-slice CT scanner. Direct axial sections were obtained from the foramen magnum to the vertex without the use of intravenous contrast material. Sagittal and coronal reformations were obtained. One or more the following dose reduction techniques were utilized: automated exposure control, adjustment of the mA and/or kV according to patient's size or use of iterative reconstruction technique. The images were viewed on a PACS workstation. CTD/vol = 45.0 mGy; Total Exam DLP = 720.2 mGy-cm. COMPARISON: None. FINDINGS: There is a large left frontoparietal ovoid intracranial hemorrhage measuring approximately 5.6 x 8.3 x 5.2 cm with surrounding edema and mass effect. There is effacement of the left lateral ventricle with [id number]-eg-[id number] midline shift of approximately 18 mm consistent with subfalcine herniation. There is mild asymmetric enlargement of the right lateral ventricle which presumably is trapped. The bony calvarium is intact. Polypoidal mucosal thickening is seen within the partially visualized inferior right maxillary sinus. No air-fluid levels are noted. The mastoid air cells are without significant soft tissue. IMPRESSION: Large left frontal-parietal intracranial hemorrhage with surrounding edema and mass effect resulting in lmfm-hw-qrbxt midline shift of 18 mm consistent with subfalcine herniation. CRITICAL RESULTS: A call report was made to [facility] ER Dr. Walsh on December 22, 2016 at 06:03 a.m.. .Meir Saleh MD, Date Time Electronically viewed and signed by .Meir Saleh MD, MD on 12/22/2016 06:07 .M/ CC: CHARLES DOMINGUEZ MD PROCEDURE: CHEST - 1 VIEW CLINICAL INDICATION: 61-year-old female with altered level of consciousness and intubation. TECHNIQUE: A single frontal AP portable view of the chest was performed. The images were reviewed on a PACS workstation. COMPARISON: Chest x-ray July 08, 2008. FINDINGS: There is an endotracheal tube identified with the tip in the right mainstem bronchus approximately 5 mm below the az. There is a nasogastric tube visualized which extends to the distal esophagus and is looped back and extends back into the neck. The cardiomediastinal silhouette is mildly enlarged. There is a shallow inspiration. There is mild pulmonary vascular congestion. There is bilateral lower lung zone subsegmental atelectasis. There is no definite focal infiltrate. There is no evidence for pneumothorax. The osseous structures are intact. IMPRESSION: 1. Endotracheal tube with the tip in the right mainstem bronchus approximate 5 mm below the az. 2. Nasogastric tube looped within the distal esophagus extending back into the neck. This should be pulled out and replaced. : This has been pulled out 3. Shallow inspiration. 4. Mild pulmonary vascular congestion. 5. Mild bilateral lower lung zone subsegmental atelectasis. CALL REPORT: A call report was made to [facility] ER Dr. Walsh on December 22, 2016 at 06:38 a.m. .Meir Saleh MD, Date Time Electronically viewed and signed by .Meir Saleh MD, on 12/22/2016 06:46 .M/ CC: CHARLES DOMINGUEZ MD, BOLAT[place]O M. December 23, 2016 09:12
[2016-12-23] MEDS ORDERED: MAGNESIUM SULFATE 2 GM/50 ML 50 ML IVPB ONE ×2 (09:30→10:00)
[2016-12-23] MEDS: NS + KCL 20 MEQ 1,000 ML IV SCH ×3 (09:31→22:18)
--- NOTE | 2016-12-23 12:43 | RADRPT ---
PROCEDURE: XR Chest. CLINICAL INDICATION: Adjusted endotracheal tube TECHNIQUE: Single AP view of the chest were obtained COMPARISON: 12/22/2016 FINDINGS: The heart and mediastinum are within normal limits. The pulmonary vasculature are unremarkable. The aorta demonstrates atherosclerotic calcifications. There is no lung consolidation, pleural effusi on or pneumothorax. Degenerative changes are seen within the thoracic spine. There is no acute oss eous abnormality. Endotracheal tube tip has been pulled back and terminates in the trachea above the az. gastric catheter is not visualized on this exam. It appears to have been removed. IMPRESSION: No acute disease. Endotracheal tube terminates within the mid trachea. Gastric catheters been removed. RPTAT: AA .Latha Childress MD, MD Date Time Electronically viewed and signed by .Latha Childress MD, on 12/23/2016 12:43 .Gretel/
[2016-12-23] MEDS: PROPOFOL 100 ML IV SCH ×2 (12:49→22:19)
--- NOTE | 2016-12-23 13:03 | RADRPT ---
AMENDMENT: 12/23/2016 1:09:50 PM Silvio Hernandez M.d Call report: Findings were called to Maritza Riley RN at 01:05 p.m. on 12/23/2016. PROCEDURE: CT brain without contrast CLINICAL INDICATION: Intracranial hemorrhage, status post craniotomy TECHNIQUE: CT of the brain without contrast was performed on a multidetector CT scanner, with multi planar reformats. One or more of the following dose reduction techniques were used: Automated expos ure control, adjustment in mA and / or kV according to patient size, use of iterative reconstructive technique. CTDIvol = 45 mGy; DLP = 810 mGy-cm. COMPARISON: 12/22/2016 FINDINGS: Interval left frontal - temporal - parietal craniotomy performed with overlying scalp swelling - gas and katia. There is a small amount of extra-axial hemorrhage underneath the craniotomy measuring up to approximately 5 mm in thickness, and small amount of scattered pneumocephalus in the left fro ntal region. There has been decompression of the underlying intraparenchymal hematoma with residual areas of hemorrhage in the left frontal - parietal, temporal regions, and there is also now a small area of hemorrhage extending across the posterior left lentiform nucleus - posterior limb of the le ft internal capsule towards the left mid brain. There is associated small foci of postoperative gas within the areas of hemorrhage and mild to moderate surrounding edema. Small area of hypodensity is also seen in the left temporal lobe which may reflect surgical material. Overall, there has been i mprovement of mass effect with decrease in lateral and third ventricular effacement. There is shift of the septum pellucidum to the right, currently measuring 6 mm. There is persistent hemorrha ge extending into the left lateral ventricle which is more conspicuous and appears slightly increase d in amount. There is now a small amount of hemorrhage in the right occipital horn. There has been interval decrease in right temporal horn dilation. There is also a now a very small left tentorial subdural hemorrhage measuring up to 2 mm in thickness. Mild atherosclerotic calcifications are seen at the intracranial internal carotid arteries. Noted is a large right maxillary sinus mucous reten tion cyst. IMPRESSION: 1. Postoperative changes status post left frontal - temporal - parietal craniotomy, and underlying intraparenchymal hematoma decompression with small extra-axial hemorrhage underneath the craniotomy and small amount of left frontal pneumocephalus. Residual intraparenchymal hemorrhage in the left f rontal - temporal - parietal regions, with small area of hemorrhage now extending across the left ba damian ganglia/internal capsule, and mild to moderate surrounding edema. 2. Interval very small left tentorial subdural hemorrhage. 3. Intraventricular hemorrhage in the left lateral ventricle, increased, and interval small amount of interventricular hemorrhage in the right lateral ventricle. 4. Decrease in rightward midline shift, now 6 mm. 5. Decrease in right temporal horn dilation. RPTAT: AA .Silvio Hernandez MD, MD Date Time Electronically viewed and signed by .Silvio Hernandez MD, MD on 12/23/2016 13:10 .O/
[2016-12-23] MEDS: niCARdipine 25 MG in SOD CHLORIDE 0.9% 250 ML IV SCH ×2 (13:54→20:04)
[2016-12-23] MEDS ORDERED: LEVETIRACETAM IV 1,000 MG in SOD CHLORIDE 0.9% 100 ML SCH (14:30)
[2016-12-23] MEDS ORDERED: LEVETIRACETAM IV 1,000 MG in SOD CHLORIDE 0.9% 100 ML IVPB SCH (14:30)
[2016-12-23] MEDS: LEVETIRACETAM 1000 MG (PMX) 100 ML IVPB SCH ×2 (15:26→22:32)
--- NOTE | 2016-12-23 16:26 | CONS ---
DATE OF ADMISSION: 12/22/2016 DATE OF CONSULTATION: 12/23/2016 TYPE OF CONSULTATION: Neurology. Thank you, Dr. Persaud, for your kind referral for evaluation of intracerebral hemorrhage. HISTORY OF PRESENT ILLNESS: The patient is a 61-year-old lady with essentially no past medical history with exception of hypertension, who was admitted yesterday with decreased level of consciousness, was intubated, and CAT scan showed a large 8 x 5 x 5 cm left intracerebral hemorrhage in the frontoparietal area with intraventricular blood and mass effect. Neurosurgeon saw the patient and family wanted to proceed with surgery last night. Evacuation of hematoma was performed. CAT scan repeated today shows postoperative changes of frontotemporoparietal craniotomy. Residual intraparenchymal hemorrhage was seen. Interval decrease of rightward midline shift, only 6 mm currently, decreased right temporal horn dilation, intraventricular hemorrhage in the left lateral ventricle increased. MEDICATIONS: Patient is currently on: 1. Nicardipine drip. 2. Protonix. 3. Mannitol 25 grams q.6 hours. The patient continues to be unresponsive. ALLERGIES: NONE. SOCIAL HISTORY: Cigarette smoker. FAMILY HISTORY: Noncontributory. REVIEW OF SYSTEMS: Unable to obtain review of systems. LABORATORY DATA: The patient's labs show today's WBC count 22, hemoglobin 10.9 , hematocrit 33, neutrophils 85%. Chemistry: Normal basic metabolic panel today. Normal liver function test yesterday, borderline AST 53. Blood gas today 7.46, pCO2 of 28, pO2 of 108. Tox screen was negative for drug. Urinalysis negative. PHYSICAL EXAMINATION: VITAL SIGNS: Today, temperature 98.7, pulse 90, 16 respiration, 131/55 blood pressure. GENERAL: Not in acute distress, status post craniotomy, dressing. The patient is sedated with propofol. NEUROLOGIC: No definite response to visual threat. Pupils about 1 mm, fixed. No spontaneous eye movements. Trace of movement in the right eye with oculocephalic maneuver, seemed to overcome midline. Corneal reflexes very weak bilaterally, weaker on the right. According to the family, gag was present on suctioning. When I was performing oculocephalic maneuver, patient was showing some extensor posturing in the left upper extremity. Flaccid tone in extremities. Extensor posturing in the left upper extremity. Trace of withdrawal left lower extremity. No movements on the right. Upgoing toes on the right, equivocal on the left. IMPRESSION: Large intracerebral hemorrhage on the left, possibly hypertensive. MRI of the brain for evaluation of underlying lesions was requested. Status post evacuation of hematoma. Neurosurgery gave patient mannitol. I do not see if she is on any seizure prophylaxis after the surgery, I will put her on Keppra. Continue current treatment otherwise as per NS. Thank you very much for this interesting consultation. Keep patient normotensive. Dictated By: MICHAEL GIBSON/TRAVON Conf#: [id number] DID#: [id number] MTDD
[2016-12-23] MEDS ORDERED: hydrALAzine 20 MG INJ IV ONE (19:00)
[2016-12-23] MEDS: morphine 2 MG INJ IV PRN (19:25)
[2016-12-24] VITALS (89 sets, daily range): BP systolic 99–146; BP diastolic 44–72; PULSE 70–109; RESP 13–22
[2016-12-24] MEDS: morphine 2 MG INJ IV PRN (00:25)
[2016-12-24] MEDS: MANNITOL 25% 50 ML INJ IV* SCH ×3 (01:07→12:06)
[2016-12-24 05:01] LABS: ADD SCAN DIFF NO
[2016-12-24 05:06] LABS: BASOPHILS % 0.2 % (0.0-2.0); EOSINOPHILS % 0.1 % (0.0-7.0); HEMOGLOBIN 8.9 g/dl (12.0-16.0); LYMPHOCYTES # 1.6 10^3/ul (0.8-2.9); LYMPHOCYTES % 9.9 % (15.0-51.0); MEAN CORPUSCULAR HEMOGLOBIN 29.6 pg (29.0-33.0); MEAN CORPUSCULAR HGB CONC 31.8 g/dl (32.0-37.0); MEAN PLATELET VOLUME 11.3 fl (7.4-10.4); MONOCYTE # 1.1 10^3/ul (0.3-0.9); MONOCYTES % 7.1 % (0.0-11.0); NEUTROPHIL # 13.1 10^3/ul (1.6-7.5); PLATELET COUNT 190 10^3/UL (140-415); RED BLOOD COUNT 3.01 10^6/ul (4.20-5.40); RED CELL DISTRIBUTION WIDTH 12.7 % (11.5-14.5)
[2016-12-24] MEDS: PROPOFOL 100 ML IV SCH ×2 (05:11→22:08)
[2016-12-24] MEDS: PANTOPRAZOLE 40 MG INJ IV SCH (05:12)
[2016-12-24 05:22] LABS: AADO2 Arterial 108.3 mmHg (7.0-24.0); Arterial Base Excess 0.8 mmol/L (-3.0-3); Arterial COHb 0.3 % (0.0-3.0); Arterial Fraction of Oxyhgb 97.4 % (93.0-99.0); Arterial HCO3 25.2 mmol/L (22.0-26.0); Arterial MetHb 0.4 % (0.0-1.5); Arterial Total Hemglobin 9.6 g/dl (12.0-18.0); MODE VENT - AC
[2016-12-24 05:37] LABS: CALCIUM 7.6 mg/dl (8.4-10.2); CREATININE 0.65 mg/dl (0.44-1.00); POTASSIUM 3.5 mmol/L (3.5-5.1)
[2016-12-24 06:43] LABS: THYROID STIMULATING HORMONE 0.396 MIU/L (0.465-4.680)
--- NOTE | 2016-12-24 07:38 | CONS ---
DATE OF ADMISSION: 12/22/2016 DATE OF CONSULTATION: 12/23/2016 PRIMARY PHYSICIAN: Dr. Phan and Dr. Gamboa. REASON FOR CONSULTATION: Vent-dependent, status post massive intracranial hemorrhage. HISTORY OF PRESENT ILLNESS: Briefly, this is a 61-year-old female with history of hypertension who was found obtunded on unit reactor operator of the by her . Upon arrival to the emergency room, patient was noted to be comatose and unable to protect her airway. At that point, she was also not ed to be apneic and with the presence of decerebrate posturing. It was also noted that her GCS was 3 at that point. The patient was intubated. Thereafter, the patient underwent a brain CT that was notable for a large left frontotemporal intracranial hemorrhage with surrounding edema and mass effe ct with midline shift. She was subsequently taken to the OR for decompression craniectomy by Dr. Augie hussein. She has also been on mechanical ventilation and has been receiving mannitol for management o f cerebral edema. PAST MEDICAL HISTORY: As above. PAST SURGICAL HISTORY: Unknown. ALLERGIES: NO KNOWN DRUG ALLERGIES. SOCIAL HISTORY: Positive tobacco, no alcohol or illicit drug use. FAMILY HISTORY: Noncontributory. REVIEW OF SYSTEMS: Unable to obtain. MEDICATIONS: Please see MAR. PHYSICAL EXAMINATION: VITAL SIGNS: Blood pressure is 127/56, oxygen saturation 99% on 40% FIO2, heart rate is 86, tempera ture is 98.3. HEENT: Normocephalic. She has bandages from her craniotomy in place. ET tube is in place. NECK: Supple, no thyromegaly. CARDIOVASCULAR: Regular rate and rhythm, S1 and S2. LUNGS: Clear to auscultation bilaterally. ABDOMEN: Soft, nontender, no hepatosplenomegaly. EXTREMITIES: No cyanosis, clubbing or edema. She is diffusely flaccid unarousable to painful stimu li. Pupils are reactive to light. There is a faint gag reflex as well as corneals present. LABORATORY DATA: ABG: pH 7.467, pCO2 is 28, pO2 of 108. WBC is 22.3, hemoglobin is 10.9, BUN is 8 , creatinine is 0.7. Chest x-ray shows ET tube entering the right main stem bronchus with some mild pulmonary venous joe estion. IMPRESSION: 1. Massive intracerebral hemorrhage, etiology likely due to hypertension. Based upon the patient's initial clinical examination including her GCS score, prognosis is extremely poor. At this point, the patient is receiving supportive care including efforts to minimize risk of cerebral edema. 2. Vent-dependent respiratory failure secondary to #1. The patient remains on ventilator due to ai rway protection. 3. Status post craniectomy, postoperative day #1. 4. Hypertensive heart disease. RECOMMENDATIONS: 1. Continuation of mechanical ventilatory support. 2. Will repeat x-ray and withdraw ET tube, so that is approximately 4 cm above the az. 3. Keep head of bed elevated. 4. Mannitol as per Dr. Mercer for minimization of risk of cerebral edema. 5. Will maintain pCO2 at about 28 to 32 for the time being. Will also monitor closely for presence of fevers that is very common post-intracranial hemorrhage. Dictated By: MARIA GUADALUPE ARTHUR MD NK/NTS Conf#: [id number] DID#: [id number] CC: MAXIMO CASH MD; KRYS GAMBOA;*EndCC*
--- NOTE | 2016-12-24 08:52 | PN ---
Date/Time of Note Date/Time of Note DATE: 12/24/16 TIME: 08:52 Assessment/Plan VTE Prophylaxis VTE Prophylaxis Intervention: SCD's VTE Contraindication Reason: hemorrhagic cerebral infarction Lines/Catheters IV Catheter Type (from Nrs): Peripheral IV Urinary Cath still in place: Yes Reason Cath still needed: terminal illness/intractable pain Assessment/Plan Assessment/Plan This is an unfortunate 61-year-old female with a massive left-sided hemorrhagic stroke. 1. Large left-sided frontal parietal hemorrhagic stroke. * s/p craniotomy for ICH evacuation December 22, 2016 / no drain for now / patient on mannitol for edema per neurosurgery * Thought to be secondary to hypertension 2. Ventilator dependent respiratory failure secondary to #1: Remains ventilator dependent 3. Hypertensive emergency: Resolved / patient has good blood pressures right now / per family patient had no history of high blood pressure 4. Dyslipidemia chronic 5. Leukocytosis: Likely reactive: improving PLAN: * Continue ICU monitoring and care for now * Appreciate neurosurgical prompt input and management. Continue to follow recommendations. MRI done, report pending * Dropping Hgb noted * Continue vent management and ?weaning. * No current evidence of infection, plan for blood cultures as needed for fevers. * Replace electrolytes * No tube feeds for now , continue IV hydration * Family aware of poor prognosis. Assisting actively in management * Treatment plan discussed with family, questions answered. Prophylaxis: PPI/SCDs Critical care time: >35 minutes Subjective 24 Hr Interval Summary Free Text/Dictation Patient seen and examined. Nursing reports no acute overnight events. Subjective hx not possible: pt non-verbal, pt critical status Exam/Review of Systems Vital Signs Vitals Vital Signs Date Time Temp Pulse Resp B/P Pulse Ox O2 Delivery O2 Flow Rate FiO2 12/24/16 06:30 75 14 137/60 100 12/24/16 06:00 Mechanical Ventilator 12/24/16 05:47 40 12/24/16 04:00 98.5 12/22/16 07:30 10.0 Intake and Output 12/23/16 12/23/16 12/24/16 15:00 23:00 07:00 Intake Total 1032.4 ml 1383.4 ml 769.05 ml Output Total 900 ml 930 ml 1050 ml Balance 132.4 ml 453.4 ml -280.95 ml Exam Constitutional: other (Patient still with no purposeful movement off sedation) , No alert, No oriented Psych: other (Unable to assess) Eyes: other (Left foot peel is brisk, right is sluggish) ENMT: intubated Respiratory: clear to auscultation, normal air movement Cardiovascular: nl pulses, No murmurs/extra sounds, No regular rate and rhythm (Tachycardic) Gastrointestinal: bowel sounds, soft, No distended Genitourinary - Female: nl adnexae, nl external genitalia, other (Miner to bedside drainage with good urine output) Musculoskeletal: nl extremities to inspection Extremities: No edema Neurological: other, only posturing movement off sedation , unresponsive Skin: No rash or lesions Results Result Diagram: 12/24/165 12/24/16 0445 Results 24 hrs Laboratory Tests Test 12/24/16 04:45 12/24/16 05:00 White Blood Count 16.0 #H Red Blood Count 3.01 L Hemoglobin 8.9 L Hematocrit 28.0 L Mean Corpuscular Volume 93.0 Mean Corpuscular Hemoglobin 29.6 Mean Corpuscular Hemoglobin Concent 31.8 L Red Cell Distribution Width 12.7 Platelet Count 190 # Mean Platelet Volume 11.3 H Neutrophils % 82.0 H Lymphocytes % 9.9 L Monocytes % 7.1 Eosinophils % 0.1 Basophils % 0.2 Nucleated Red Blood Cells % 0.0 Neutrophils # 13.1 H Lymphocytes # 1.6 Monocytes # 1.1 H Eosinophils # 0.0 Basophils # 0.0 Nucleated Red Blood Cells # 0.0 Sodium Level 139 Potassium Level 3.5 Chloride Level 111 H Carbon Dioxide Level 25 Anion Gap 7 #L Blood Urea Nitrogen 8 Creatinine 0.65 Glucose Level 124 # Hemoglobin A1c 5.7 Calcium Level 7.6 L Magnesium Level 2.7 #H Thyroid Stimulating Hormone (TSH) 0.396 L Blood Gas Specimen Source Blood arterial Arterial Blood Date Drawn 12/24/2016 5:03:50 AM Arterial Blood pH (Temp corrected) 7.427 Arterial Blood pCO2 (Temp correct) 39.1 Arterial Blood pO2 (Temp corrected) 131.9 H Arterial Blood HCO3 25.2 Arterial Blood Base Excess 0.8 Arterial Blood Oxygen Saturation 98.1 H Rafael Test N/A Arterial Blood Gas Puncture Site A-Line Arterial Blood Carboxyhemoglobin 0.3 Arterial Blood Methemoglobin 0.4 Blood Gas A-a O2 Differential 108.3 H Oxyhemoglobin Percent 97.4 Total Hemoglobin 9.6 L Blood Gas Temperature 37.0 Blood Gas Respiration Rate 12.0 Blood Gas Actual Respiration Rate 12 Blood Gas Modality VENT - AC FiO2 40.0 Blood Gas Tidal Volume 500.0 Blood Gas Low PEEP Setting 5.0 Blood Gas Inspiratory Pressure 21.0 Blood Gas Notified Whom RTR Blood Gas Notified Time 12/24/2016 5:22:16 AM Medications Medications Current Medications Acetaminophen (Tylenol Liquid) 650 mg Q6H PRN PO PAIN LEVEL 1-3 OR FEVER; Start 12/22/16 at 08:00 Acetaminophen (Tylenol Supp) 650 mg Q4H PRN ID PAIN LEVEL 1-3 OR FEVER; Start 12/22/16 at 08:00 Magnesium Hydroxide (Milk Of Mag) 30 ml DAILY PRN PO CONSTIPATION; Start at 08:00 Pantoprazole (Protonix Iv) 40 mg DAILY@06 IV Last administered on 12/24/16 05: 12; Admin Dose 40 MG; Start 12/23/16 at 06:00 Docusate Sodium 100 mg 100 mg BID PO ; Start 12/22/16 at 09:00 Propofol (Diprivan) 100 ml @ 2.55 mls/hr Q12H IV Last administered on 05:11; Admin Dose 10.2 MLS/HR; Start 12/22/16 at 11:30 Morphine Sulfate (morphine) 2 mg Q2H PRN IV PAIN LEVEL 6-10 Last administered on 12/24/16 00:25; Admin Dose 2 MG; Start 12/22/16 at 13:00 Acetaminophen (Tylenol Tab) 650 mg Q6H PRN PO PAIN AND OR ELEVATED TEMP; Start 12/22/16 at 13:00 Ondansetron HCl (Zofran Inj) 4 mg Q6H PRN IV NAUSEA AND/OR VOMITING; Start at 13:00 Pantoprazole (Protonix Tab) 40 mg DAILY@06 PO ; Start 12/23/16 at 06:00; Status Future Hold Lorazepam (Ativan) 1 mg Q1H PRN IV SEIZURES; Start 12/22/16 at 15:00 Mannitol 25 gm 25 gm Q6 IV* Last administered on 12/24/16 06:50; Admin Dose 25 GM; Start 12/22/16 at 16:02 Potassium Chloride/Sodium Chloride 1,000 ml @ 100 mls/hr Q10H IV Last administered on 12/23/16 22:18; Admin Dose 100 MLS/HR; Start 12/22/16 at 20:30 Acetaminophen 50 ml @ 200 mls/hr Q6H PRN IVPB FEVER Last administered on 21:04; Admin Dose 200 MLS/HR; Start 12/22/16 at 21:00 Levetiracetam (Keppra 1,000mg/ 100ml (Pmx)) 100 ml @ 400 mls/hr Q12 IVPB Last administered on 12/23/16 22:32; Admin Dose 400 MLS/HR; Start 12/23/16 at 14:30 Procedures Procedures AMENDMENT: 12/23/2016 1:09:50 PM Silvio Hernandez M.d Call report: Findings were called to Maritza Riley RN at 01:05 p.m. on 12/23/2016. PROCEDURE: CT brain without contrast CLINICAL INDICATION: Intracranial hemorrhage, status post craniotomy TECHNIQUE: CT of the brain without contrast was performed on a multidetector CT scanner, with multiplanar reformats. One or more of the following dose reduction techniques were used: Automated exposure control, adjustment in mA and / or kV according to patient size, use of iterative reconstructive technique. CTDIvol = 45 mGy; DLP = 810 mGy-cm. COMPARISON: 12/22/2016 FINDINGS: Interval left frontal - temporal - parietal craniotomy performed with overlying scalp swelling - gas and katia. There is a small amount of extra-axial hemorrhage underneath the craniotomy measuring up to approximately 5 mm in thickness, and small amount of scattered pneumocephalus in the left frontal region. There has been decompression of the underlying intraparenchymal hematoma with residual areas of hemorrhage in the left frontal - parietal, temporal regions, and there is also now a small area of hemorrhage extending across the posterior left lentiform nucleus - posterior limb of the left internal capsule towards the left mid brain. There is associated small foci of postoperative gas within the areas of hemorrhage and mild to moderate surrounding edema. Small area of hypodensity is also seen in the left temporal lobe which may reflect surgical material. Overall, there has been improvement of mass effect with decrease in lateral and third ventricular effacement. There is shift of the septum pellucidum to the right, currently measuring 6 mm. There is persistent hemorrhage extending into the left lateral ventricle which is more conspicuous and appears slightly increased in amount. There is now a small amount of hemorrhage in the right occipital horn. There has been interval decrease in right temporal horn dilation. There is also a now a very small left tentorial subdural hemorrhage measuring up to 2 mm in thickness. Mild atherosclerotic calcifications are seen at the intracranial internal carotid arteries. Noted is a large right maxillary sinus mucous retention cyst. IMPRESSION: 1. Postoperative changes status post left frontal - temporal - parietal craniotomy, and underlying intraparenchymal hematoma decompression with small extra-axial hemorrhage underneath the craniotomy and small amount of left frontal pneumocephalus. Residual intraparenchymal hemorrhage in the left frontal - temporal - parietal regions, with small area of hemorrhage now extending across the left basal ganglia/internal capsule, and mild to moderate surrounding edema. 2. Interval very small left tentorial subdural hemorrhage. 3. Intraventricular hemorrhage in the left lateral ventricle, increased, and interval small amount of interventricular hemorrhage in the right lateral ventricle. 4. Decrease in rightward midline shift, now 6 mm. 5. Decrease in right temporal horn dilation. RPTAT: AA .Silvio Hernandez MD, Date Time Electronically viewed and signed by .Silvio Hernandez MD, MD on 12/23/2016 13:10 .O/ CC: JOSE NAVARRETE MD TY BECERRA December 24, 2016 08:52
[2016-12-24] MEDS: DOCUSATE SODIUM 100 MG CAP PO SCH ×2 (09:00→20:15)
[2016-12-24] MEDS: niCARdipine 25 MG in SOD CHLORIDE 0.9% 250 ML IV SCH ×2 (09:18→15:00)
--- NOTE | 2016-12-24 09:25 | CONS ---
Date/Time of Note Date/Time of Note DATE: 12/24/16 TIME: 09:23 Assessment/Plan Assessment/Plan Additional Assessment/Plan Ventilator settings; AC of 12, tidal volume 500, PEEP of 5, 40% FiO2. Assessment recommendations; 1. Patient admitted with massive intracerebral hemorrhage leading to respiratory failure. Status post surgery. 2. History of hypertension. 3. Family has decided for DNR status. Continue supportive care. Prognosis is dismal. Consultation Date/Type/Reason Admit Date/Time December 22, 2016 at 06:45 Initial Consult Date Type of Consultation: Pulmonary/critical care 24 HR Interval Summary Free Text/Dictation Patient condition is critical. Remains completely unresponsive. Patient however has remained hemodynamically stable. No overt seizure activity noted. General exam; elderly lady, orally intubated. Currently in no distress. Exam/Review of Systems Vital Signs Vitals Vital Signs Date Time Temp Pulse Resp B/P Pulse Ox O2 Delivery O2 Flow Rate FiO2 12/24/16 08:50 96 12/24/16 06:30 14 137/60 100 12/24/16 06:00 Mechanical Ventilator 12/24/16 05:47 40 12/24/16 04:00 98.5 12/22/16 07:30 10.0 Intake and Output 12/23/16 12/23/16 12/24/16 15:00 23:00 07:00 Intake Total 1032.4 ml 1383.4 ml 769.05 ml Output Total 900 ml 930 ml 1050 ml Balance 132.4 ml 453.4 ml -280.95 ml Exam HEENT examination; supple neck, no JVD. No lymphadenopathy. Midline trachea. No thyromegaly. Orally intubated. Patient has fair dentition. Pupils are small and sluggishly reactive to light bilaterally. There is a dressing applied over the head. Chest examination; clear to auscultation. S1-S2 audible, no murmurs. Regular rhythm. Abdomen examination; soft, nondistended. No organomegaly. Bowel sounds are sluggish. Extremity examination; no peripheral edema. INSURANCE INSTRUCTOR examination; patient is unresponsive. Results Result Diagram: 12/24/16 0445 12/24/16 0445 Results 24 hrs Laboratory Tests Test 12/24/16 04:45 12/24/16 05:00 White Blood Count 16.0 #H Red Blood Count 3.01 L Hemoglobin 8.9 L Hematocrit 28.0 L Mean Corpuscular Volume 93.0 Mean Corpuscular Hemoglobin 29.6 Mean Corpuscular Hemoglobin Concent 31.8 L Red Cell Distribution Width 12.7 Platelet Count 190 # Mean Platelet Volume 11.3 H Neutrophils % 82.0 H Lymphocytes % 9.9 L Monocytes % 7.1 Eosinophils % 0.1 Basophils % 0.2 Nucleated Red Blood Cells % 0.0 Neutrophils # 13.1 H Lymphocytes # 1.6 Monocytes # 1.1 H Eosinophils # 0.0 Basophils # 0.0 Nucleated Red Blood Cells # 0.0 Sodium Level 139 Potassium Level 3.5 Chloride Level 111 H Carbon Dioxide Level 25 Anion Gap 7 #L Blood Urea Nitrogen 8 Creatinine 0.65 Glucose Level 124 # Hemoglobin A1c 5.7 Calcium Level 7.6 L Magnesium Level 2.7 #H Thyroid Stimulating Hormone (TSH) 0.396 L Blood Gas Specimen Source Blood arterial Arterial Blood Date Drawn 12/24/2016 5:03:50 AM Arterial Blood pH (Temp corrected) 7.427 Arterial Blood pCO2 (Temp correct) 39.1 Arterial Blood pO2 (Temp corrected) 131.9 H Arterial Blood HCO3 25.2 Arterial Blood Base Excess 0.8 Arterial Blood Oxygen Saturation 98.1 H Rafael Test N/A Arterial Blood Gas Puncture Site A-Line Arterial Blood Carboxyhemoglobin 0.3 Arterial Blood Methemoglobin 0.4 Blood Gas A-a O2 Differential 108.3 H Oxyhemoglobin Percent 97.4 Total Hemoglobin 9.6 L Blood Gas Temperature 37.0 Blood Gas Respiration Rate 12.0 Blood Gas Actual Respiration Rate 12 Blood Gas Modality VENT - AC FiO2 40.0 Blood Gas Tidal Volume 500.0 Blood Gas Low PEEP Setting 5.0 Blood Gas Inspiratory Pressure 21.0 Blood Gas Notified Whom RTR Blood Gas Notified Time 12/24/2016 5:22:16 AM Medications Medications Current Medications Acetaminophen (Tylenol Liquid) 650 mg Q6H PRN PO PAIN LEVEL 1-3 OR FEVER; Start 12/22/16 at 08:00 Acetaminophen (Tylenol Supp) 650 mg Q4H PRN CA PAIN LEVEL 1-3 OR FEVER; Start 12/22/16 at 08:00 Magnesium Hydroxide (Milk Of Mag) 30 ml DAILY PRN PO CONSTIPATION; Start at 08:00 Pantoprazole (Protonix Iv) 40 mg DAILY@06 IV Last administered on 12/24/16 05: 12; Admin Dose 40 MG; Start 12/23/16 at 06:00 Docusate Sodium 100 mg 100 mg BID PO ; Start 12/22/16 at 09:00 Propofol (Diprivan) 100 ml @ 2.55 mls/hr Q12H IV Last administered on 05:11; Admin Dose 10.2 MLS/HR; Start 12/22/16 at 11:30 Morphine Sulfate (morphine) 2 mg Q2H PRN IV PAIN LEVEL 6-10 Last administered on 12/24/16 00:25; Admin Dose 2 MG; Start 12/22/16 at 13:00 Acetaminophen (Tylenol Tab) 650 mg Q6H PRN PO PAIN AND OR ELEVATED TEMP; Start 12/22/16 at 13:00 Ondansetron HCl (Zofran Inj) 4 mg Q6H PRN IV NAUSEA AND/OR VOMITING; Start at 13:00 Pantoprazole (Protonix Tab) 40 mg DAILY@06 PO ; Start 12/23/16 at 06:00; Status Future Hold Lorazepam (Ativan) 1 mg Q1H PRN IV SEIZURES; Start 12/22/16 at 15:00 Mannitol 25 gm 25 gm Q6 IV* Last administered on 12/24/16 06:50; Admin Dose 25 GM; Start 12/22/16 at 16:02 Potassium Chloride/Sodium Chloride 1,000 ml @ 100 mls/hr Q10H IV Last administered on 12/23/16 22:18; Admin Dose 100 MLS/HR; Start 12/22/16 at 20:30 Acetaminophen 50 ml @ 200 mls/hr Q6H PRN IVPB FEVER Last administered on 21:04; Admin Dose 200 MLS/HR; Start 12/22/16 at 21:00 Levetiracetam (Keppra 1,000mg/ 100ml (Pmx)) 100 ml @ 400 mls/hr Q12 IVPB Last administered on 12/23/16 22:32; Admin Dose 400 MLS/HR; Start 12/23/16 at 14:30 THOMAS MCCAIN December 24, 2016 09:25
[2016-12-24] MEDS: LEVETIRACETAM 1000 MG (PMX) 100 ML IVPB SCH ×2 (09:26→20:55)
--- NOTE | 2016-12-24 09:50 | RADRPT ---
PROCEDURE: MRI Brain without contrast. CLINICAL INDICATION: Intracranial hemorrhage, status post craniotomy TECHNIQUE: Multiplanar MRI of the brain without contrast was performed on a 3.0 T scanner with the following sequences obtained: T1-weighted, T2-weighted/FLAIR, diffusion weighted (with ADC map), GR E. COMPARISON: CT brain 12/23/2016, 12/22/2016 FINDINGS: Again demonstrated are postoperative changes with left frontal - temporal - parietal craniotomy with overlying scalp swelling and gas, small extra-axial hemorrhage underneath the craniotomy measuring up to approximately 5 mm residual small amount of pneumocephalus in the left frontal region. Decomp ression of underlying intraparenchymal hematoma with residual areas of hemorrhage redemonstrated in the left frontal, temporal, parietal, as well as sub insular region with hemorrhage extending across the posterior left lentiform nucleus and posterior limb of the left internal capsule into the upper left mid brain. There is mild-moderate surrounding edema. There is persistent mass effect with re sidual partial lateral ventricular effacement, left greater than right, and partial third ventricula r effacement. There is shift of the septum pellucidum to the right measuring up to 8 mm. There is hemorrhage in the left left lateral ventricle, and small amount of hemorrhage in the occipital horn of the right lateral ventricle. There is minimal left tentorial subdural hemorrhage. Given differen gee in technique, these findings are not significantly changed. There are areas of restricted diffusion within the areas of edema surrounding the parenchymal hemorr jacy, along with additional very small foci in the anterior left basal ganglia, suggestive of superi mposed ischemic changes. Minimal scattered areas of increased T2-weighted FLAIR signal intensity are identified in the deep w jabier matter which are nonspecific. There are flow voids in the right cerebellar hemisphere with a c onfiguration compatible with a developmental venous anomaly. There is a punctate focus susceptibili ty consistent with chronic hemorrhage in the medial right cerebellum in the vermis region consistent with chronic hemorrhage. Flow voids are visible in the proximal intracranial arteries and dural si nuses suggesting patency. There is scattered partial bilateral mastoid air cell opacification and a large right maxillary sinus mucous retention cyst. IMPRESSION: 1. Postoperative changes, status post left frontal - temporal - parietal craniotomy and underlying intraparenchymal hematoma decompression with small extra-axial hemorrhage underneath the craniotomy and small amount of left frontal pneumocephalus without significant change. 2. Residual intraparenchymal hemorrhage in the left frontal - temporal - parietal and sub insular r egions extending across the left basal ganglia/internal capsule to the upper left mid brain with mil d to moderate surrounding edema, not significantly changed. 3. Areas of restricted diffusion within the edema surrounding the intraparenchymal hemorrhage, with additional very small foci in the left basal ganglia, suggesting superimposed ischemic changes. 4. Intraventricular hemorrhage in the lateral ventricles, left greater than right, without signific ant change. 5. Minimal left tentorial subdural hemorrhage, without significant change. 6. Rightward midline shift, without significant change. 7. Incidental right cerebellar developmental venous anomaly. 8. Chronic micro hemorrhage in the right cerebellum. 9. Minimal nonspecific white matter changes which may reflect chronic small vessel ischemic changes . RPTAT: VV .Silvio Hernandez MD, Date Time Electronically viewed and signed by .Silvio Hernandez MD, on 12/24/2016 09:50 .O/
[2016-12-24] MEDS: NS + KCL 20 MEQ 1,000 ML IV SCH ×2 (11:37→21:38)
[2016-12-24] MEDS: EVAC CONTAINER IV SCH ×3 (12:00→23:53)
[2016-12-24] MEDS: MANNITOL 25% IV SCH ×3 (12:00→23:53)
--- NOTE | 2016-12-24 12:35 | PN ---
Date/Time of Note Date/Time of Note DATE: 12/24/16 TIME: 12:18 Assessment/Plan Lines/Catheters IV Catheter Type (from [facility]): Peripheral IV Miner in Place (from [facility]): Yes Assessment/Plan Chief Complaint/Hosp Course POD #3 s/p craniotomy for ICH evacuation. MRI stable. No large vascular territory infarct but nevertheless some evidence of superimposed ischemia around in area or bleed as expected. Neuro exam GCS 4. Prognosis remains extremely poor and expressed this to family. Daughter is now considering comfort measures but states she will decide in a few days. Cont. Medical supportive care. Progressive anemia unclear etiology but will follow. Will cont.mannitol for edema. Problems: Subjective 24 Hr Interval Summary Patient intubated. Exam/Review of Systems Vital Signs Vitals Vital Signs Date Time Temp Pulse Resp B/P Pulse Ox O2 Delivery O2 Flow Rate FiO2 12/24/16 10:30 77 15 131/52 100 12/24/16 10:00 Mechanical Ventilator 12/24/16 09:00 99.8 12/24/16 05:47 40 12/22/16 07:30 10.0 Intake and Output 12/23/16 12/23/16 12/24/16 15:00 23:00 07:00 Intake Total 1032.4 ml 1383.4 ml 769.05 ml Output Total 900 ml 930 ml 1050 ml Balance 132.4 ml 453.4 ml -280.95 ml Exam Head: other (incision dressed, clean, dry and intact.) Neurological: other (Examined off propofol for > 30 min: PERRL. No roving gaze or eye movements. No clear corneal reflex. Does bite on ET tube. Decerebrate postures bilaterally to noxious stimuli. ) Results Result Diagram: 12/24/16 0445 12/24/16 0445 Procedures Procedures MRI of Brain: IMPRESSION: 1. Postoperative changes, status post left frontal - temporal - parietal craniotomy and underlying intraparenchymal hematoma decompression with small extra-axial hemorrhage underneath the craniotomy and small amount of left frontal pneumocephalus without significant change. 2. Residual intraparenchymal hemorrhage in the left frontal - temporal - parietal and sub insular regions extending across the left basal ganglia/ internal capsule to the upper left mid brain with mild to moderate surrounding edema, not significantly changed. 3. Areas of restricted diffusion within the edema surrounding the intraparenchymal hemorrhage, with additional very small foci in the left basal ganglia, suggesting superimposed ischemic changes. 4. Intraventricular hemorrhage in the lateral ventricles, left greater than right, without significant change. 5. Minimal left tentorial subdural hemorrhage, without significant change. 6. Rightward midline shift, without significant change. 7. Incidental right cerebellar developmental venous anomaly. 8. Chronic micro hemorrhage in the right cerebellum. 9. Minimal nonspecific white matter changes which may reflect chronic small vessel ischemic changes. .Silvio Hernandez MD" I agree with this interpretation. JOSE NAVARRETE MD December 24, 2016 12:28
--- NOTE | 2016-12-24 14:46 | RADRPT ---
Echocardiogram Report Patient Name: MICKEY CORRIGAN Gender: Female Date: 1955 Study Date: 23-Dec-2016 Occupational Therapy Teacher: [facility] Location: 112 Ref. Physician: ADARSH STAPLETON Quality: Technically Difficult Study Procedures: Transthoracic echocardiogram with complete 2D, M-Mode, and doppler examination. Indications: ICH. 2D/M Mode Doppler Measurement Value Normal Ranges Measurement Value Normal Ranges LVIDd 2D 3.3 3.5 - 5.6 cm AV Peak Josh 1.9 m/sec LVIDs 2D 2.3 2.1 - 4.1 cm AV Peak PG 14.3 mmHg LVPWd 2D 1.5 0.6 - 1.1 cm LVOT Peak Josh 1.5 m/sec IVSd 2D 1.5 0.6 - 1.1 cm LVOT Peak PG 8.7 mmHg AoR Diam 2D 2.1 2.0 - 3.7 cm MV E Peak Josh 0.9 m/sec EDV 2D 43.5 cm3 MV A Peak Josh 1.0 m/sec ESV 2D 12.4 cm3 MV E/A 0.9 LA Dimen 2D 3.4 2.3 - 4.0 cm MV Decel Time 254 msec MV Decel Telfair 3 MV E/A 0.9 Findings Left Ventricle: Hyperdynamic left ventricular systolic function. Normal left ventricular cavity size. Moderate concentric left ventricular hypertrophy. Ejection fraction is visually estimated at 70 %. Tissue Doppler/Mitral Doppler indices are consistent with impaired relaxation (Stage I diastolic dysfunction). Right Ventricle: Normal right ventricular size. Normal right ventricular systolic function. Left Atrium: The left atrium is normal in size. Right Atrium: The right atrium is normal in size. Mitral Valve: Mild mitral annular calcification. Trace mitral regurgitation. Aortic Valve: Normal appearance of the aortic valve. No significant aortic stenosis or insufficiency. Tricuspid Valve: Tricuspid valve not well visualized. There is trace tricuspid regurgitation. Pericardium: Normal pericardium with no significant pericardial effusion. Aorta: Normal aortic root. IVC: Normal IVC with respiratory collapse, however patient on ventilator. Conclusions 1.Hyperdynamic left ventricular systolic function. Normal left ventricular cavity size. Moderate concentric left ventricular hypertrophy. Ejection fraction is visually estimated at 70 %. Tissue Doppler/Mitral Doppler indices are consistent with impaired relaxation (Stage I diastolic dysfunction). 2.Normal right ventricular size. Normal right ventricular systolic function. 3.The left atrium is normal in size. 4.The right atrium is normal in size. 5.No significant valvular stenosis or regurgitation seen. 6.Normal pericardium with no significant pericardial effusion. Electronically Signed By: Juan F Donohue 24-Dec-2016 14:46:16 -0700 Patient Name: MICKEY CORRIGAN Study Date: 23-Dec-2016 [id number]
--- NOTE | 2016-12-24 18:47 | OPR ---
DATE OF OPERATION: 12/22/2016 PREOPERATIVE DIAGNOSIS: Left frontotemporal intracranial hemorrhage. POSTOPERATIVE DIAGNOSIS: Left frontotemporal intracranial hemorrhage. PROCEDURE PERFORMED: Left craniotomy for evacuation of intracranial hemorrhage. SURGEON: Jose Mercer MD ANESTHESIOLOGIST: Sariah Severino MD ANESTHESIA: General endotracheal. LICENSED OPTICAL DISPENSER: None. ESTIMATED BLOOD LOSS: 400 mL. SPECIMEN COLLECTED: None. DRAINS PLACED: None. COMPLICATIONS: None. DISPOSITION: Recovery. FINDINGS: Large acute intracerebral hemorrhage HISTORY OF PRESENT ILLNESS: The patient is a 61-year-old female with a history of hypertension, reportedly uncontrolled, who presented to [facility] ER on the morning of 12/21/2016 with acute mental status changes and worsening. The patient had been intubated and had anisocoria and decerebrate posturing. CAT showed a massive left frontotemporal but predominantly deep basal ganglia hemorrhage, likely most consistent with a hypertensive bleed. This lesion measured over 8 x 5 x 4 cm and there was significant mass effect and shift as well as uncal herniation. There was a small amount of intraventricular hemorrhage as well. Both the ER physician, Dr. Walsh, and myself discussed the extremely poor prognosis for this patient and surgical intervention was not recommended. Nevertheless, the patient's family wished to proceed with surgical decompression and given the patient's rapid deterioration, surgery was performed. The risks, benefits, and alternatives of surgical intervention were discussed with the patient's family who elected for surgical treatment. DESCRIPTION OF PROCEDURE: The patient was brought to the OR. She was already intubated. A Miner catheter had already been placed and sequential compression devices were placed. The patient was placed in the supine position on the operative table, and her head turned to the left side was facing superiorly. An arterial line was placed by Dr. Severino. The patient was sterilely prepped and draped. Perioperative antibiotics were given. Anticonvulsant medication had been given. After surgical timeout, the procedure commenced. A large question tank-shaped frontotemporal parietal incision was made through the skin down to the bone and a myocutaneous flap reflected anteriorly inferiorly. Perforators were used to make bur holes in the temporal, frontal, and parietal areas and a large craniotomy flap was turned. The dura was tense. The dura was opened in the frontal area and there appeared to be a bluish tinge after opening the frontal part of the dura. A corticectomy was made after which fresh blood clot came forth under pressure. Initially there was some herniation of the brain due to the mass effect, but the blood came forth and suctioning was performed following the pathway of the blood that was coming through the corticectomy. Over 1 minute of continuous suction was performed and clot came forth out of the cavity of the hemorrhage. The brain gradually got to a point where it actually appeared slightly sunken into the skull. At this point, the blood became more fresh and regular consistent with active bleeding. There did not appear to be a specific site of bleeding anywhere in the resection cavity and/or focal arterial bleed; however, the bleed appeared to be coming nonspecifically from the brain. With the suction and bipolar, circumferential coagulation was performed to attempt to stop bleeding. There were no large blood vessels seen to be coagulated; the bleed appeared to be within the brain parenchyma entirely. This was performed and the bleeding slowly subsided. Inspection of this cavity with a brain ribbon for retraction showed some small residual bleeding from the brain parenchyma, but again no large blood vessels. Surgifoam was placed in the cavity and coagulation resumed with the bipolar. The wound was copiously irrigated multiple times with irrigation, placing Surgifoam and then irrigating and suctioning out to achieve further hemostasis. Eventually, there appeared to be no significant bleeding and the cavity collapsed on itself. This was reopened with dissection and there did not appear to be active bleeding at this point. Almost the entirety of the frontal clot appeared to come forth after simply opening and making the corticectomy and inspection of the cavity that had been created did not show any residual large clot; nevertheless, the temporal area where the blood appeared to have extended in to, could not clearly be ascertained to have been removed. Therefore, a small dural opening was made in the inferior part and a small corticectomy, dissection carried forth to connect the two frontal and temporal area of bleed. A small amount of blood clot came forth here, but overall there did not appear to be significant residual blood. I spent a long time with hemostasis in the hemorrhage cavity and after the blood had stopped, I reinspected it and there appeared to be some recurrent residual small bleeding, so again gel coagulation was performed and Surgicel as well as multiple rounds of irrigation. This was continued until irrigation into the hemorrhage cavity came back clear. There did not appear to be any active residual bleeding. At this point, the brain appeared to be only minimally swollen, but there did not appear to be progressive swelling for over the 45 minutes that was hemostasis was achieved. The brain overall looked slightly edematous, but was pulsating and given the patient's age and the nature of this bleed, it was felt that the dura could be closed in a craniotomy performed rather than a craniectomy, which I do not feel would have benefitted the patient. Therefore, the dura was closed with interrupted 4-0 Nurolon sutures and a piece of Duragen placed over the dura. Bone flap was replaced with Marcos cranial fixation plates and then the cranial flap was closed after copious amounts of bacitracin irrigation was performed. The temporalis fascia was closed with 2-0 Vicryl and 2-0 Vicryl used to close the galea. [place] were placed in the incision and a sterile dressing applied. The patient was taken off the table and taken to recovery. Sponge, needle and cottonoid counts were reported correct at the end of the case. Dictated By: JOSE MERCER MD, LG/TRAVON Conf#: [id number] DID#: [id number] MTDCorby
--- NOTE | 2016-12-24 20:47 | CONS ---
Date/Time of Note Date/Time of Note DATE: 12/24/16 TIME: 20:45 Consult Date/Type/Reason Admit Date/Time December 22, 2016 at 06:45 Initial Consult Date Type of Consultation: neurology Subjective no acute events Objective Vital Signs Date Time Temp Pulse Resp B/P Pulse Ox O2 Delivery O2 Flow Rate FiO2 12/24/16 19:34 80 17 98 40 12/24/16 18:15 119/54 12/24/16 18:00 99.6 Mechanical Ventilator 12/22/16 07:30 10.0 Intake and Output 12/23/16 12/23/16 12/24/16 15:00 23:00 07:00 Intake Total 1032.4 ml 1383.4 ml 869.05 ml Output Total 900 ml 930 ml 1150 ml Balance 132.4 ml 453.4 ml -280.95 ml Results/Medications Result Diagram: 12/24/16 0445 12/24/16 0445 Results 24 hrs Laboratory Tests Test 12/24/16 04:45 12/24/16 05:00 12/24/16 11:45 White Blood Count 16.0 #H Red Blood Count 3.01 L Hemoglobin 8.9 L Hematocrit 28.0 L Mean Corpuscular Volume 93.0 Mean Corpuscular Hemoglobin 29.6 Mean Corpuscular Hemoglobin Concent 31.8 L Red Cell Distribution Width 12.7 Platelet Count 190 # Mean Platelet Volume 11.3 H Neutrophils % 82.0 H Lymphocytes % 9.9 L Monocytes % 7.1 Eosinophils % 0.1 Basophils % 0.2 Nucleated Red Blood Cells % 0.0 Neutrophils # 13.1 H Lymphocytes # 1.6 Monocytes # 1.1 H Eosinophils # 0.0 Basophils # 0.0 Nucleated Red Blood Cells # 0.0 Sodium Level 139 Potassium Level 3.5 Chloride Level 111 H Carbon Dioxide Level 25 Anion Gap 7 #L Blood Urea Nitrogen 8 Creatinine 0.65 Glucose Level 124 # Hemoglobin A1c 5.7 Calcium Level 7.6 L Magnesium Level 2.7 #H Thyroid Stimulating Hormone (TSH) 0.396 L Blood Gas Specimen Source Blood arterial Arterial Blood Date Drawn 12/24/2016 5:03:50 AM Arterial Blood pH (Temp corrected) 7.427 Arterial Blood pCO2 (Temp correct) 39.1 Arterial Blood pO2 (Temp corrected) 131.9 H Arterial Blood HCO3 25.2 Arterial Blood Base Excess 0.8 Arterial Blood Oxygen Saturation 98.1 H Rafael Test N/A Arterial Blood Gas Puncture Site A-Line Arterial Blood Carboxyhemoglobin 0.3 Arterial Blood Methemoglobin 0.4 Blood Gas A-a O2 Differential 108.3 H Oxyhemoglobin Percent 97.4 Total Hemoglobin 9.6 L Blood Gas Temperature 37.0 Blood Gas Respiration Rate 12.0 Blood Gas Actual Respiration Rate 12 Blood Gas Modality VENT - AC FiO2 40.0 Blood Gas Tidal Volume 500.0 Blood Gas Low PEEP Setting 5.0 Blood Gas Inspiratory Pressure 21.0 Blood Gas Notified Whom RTR Blood Gas Notified Time 12/24/2016 5:22:16 AM Osmolality Medications Current Medications Acetaminophen (Tylenol Liquid) 650 mg Q6H PRN PO PAIN LEVEL 1-3 OR FEVER; Start 12/22/16 at 08:00 Acetaminophen (Tylenol Supp) 650 mg Q4H PRN FL PAIN LEVEL 1-3 OR FEVER; Start 12/22/16 at 08:00 Magnesium Hydroxide (Milk Of Mag) 30 ml DAILY PRN PO CONSTIPATION; Start at 08:00 Pantoprazole (Protonix Iv) 40 mg DAILY@06 IV Last administered on 12/24/16 05: 12; Admin Dose 40 MG; Start 12/23/16 at 06:00 Docusate Sodium 100 mg 100 mg BID PO ; Start 12/22/16 at 09:00 Propofol (Diprivan) 100 ml @ 2.55 mls/hr Q12H IV Last administered on 05:11; Admin Dose 10.2 MLS/HR; Start 12/22/16 at 11:30 Morphine Sulfate (morphine) 2 mg Q2H PRN IV PAIN LEVEL 6-10 Last administered on 12/24/16 00:25; Admin Dose 2 MG; Start 12/22/16 at 13:00 Acetaminophen (Tylenol Tab) 650 mg Q6H PRN PO PAIN AND OR ELEVATED TEMP; Start 12/22/16 at 13:00 Ondansetron HCl (Zofran Inj) 4 mg Q6H PRN IV NAUSEA AND/OR VOMITING; Start at 13:00 Pantoprazole (Protonix Tab) 40 mg DAILY@06 PO ; Start 12/23/16 at 06:00; Status Future Hold Lorazepam 1 mg 1 mg Q1H PRN IV SEIZURES; Start 12/22/16 at 15:00 Potassium Chloride/Sodium Chloride 1,000 ml @ 100 mls/hr Q10H IV Last administered on 12/24/16 11:37; Admin Dose 100 MLS/HR; Start 12/22/16 at 20:30 Acetaminophen 50 ml @ 200 mls/hr Q6H PRN IVPB FEVER Last administered on 21:04; Admin Dose 200 MLS/HR; Start 12/22/16 at 21:00 Levetiracetam 100 ml @ 400 mls/hr Q12 IVPB Last administered on 12/24/16 09: 26; Admin Dose 400 MLS/HR; Start 12/23/16 at 14:30 Mannitol/N/A (Mannitol 25%/ Evac Container) 100 ml @ 100 mls/hr Q6 IV Last administered on 12/24/16 18:02; Admin Dose 100 MLS/HR; Start 12/24/16 at 12:00 Assessment/Plan Chief Complaint/Hosp Course PHYSICAL EXAMINATION: GENERAL: Not in acute distress, status post craniotomy, dressing. The patient is sedated with propofol. NEUROLOGIC: No definite response to visual threat. Pupils about 2 mm, very sluggish. No spontaneous eye movements. Trace of movement in the right eye with oculocephalic maneuver, seemed to overcome midline. Corneal reflexes very weak bilaterally, weaker on the right. Flaccid tone in extremities. Trace of withdrawal left lower extremity. No movements on the right. Upgoing toes on the right, equivocal on the left. IMPRESSION: Large intracerebral hemorrhage on the left, possibly hypertensive, s/p evacuation. On Keppra. Continue current treatment otherwise as per NS. D/w family. Keep patient normotensive. Problems: MICHAEL SANCHEZ MD December 24, 2016 20:47
[2016-12-25] VITALS (69 sets, daily range): BP systolic 99–145; BP diastolic 47–73; PULSE 59–150; RESP 12–28
[2016-12-25] MEDS: morphine 2 MG INJ IV PRN ×3 (01:24→19:09)
[2016-12-25] MEDS: PANTOPRAZOLE 40 MG INJ IV SCH (05:19)
[2016-12-25 06:12] LABS: ADD SCAN DIFF NO
[2016-12-25 06:14] LABS: BASOPHILS % 0.3 % (0.0-2.0); EOSINOPHILS % 0.2 % (0.0-7.0); HEMATOCRIT 25.9 % (37.0-47.0); HEMOGLOBIN 8.1 g/dl (12.0-16.0); LYMPHOCYTES # 1.7 10^3/ul (0.8-2.9); LYMPHOCYTES % 13.4 % (15.0-51.0); MEAN CORPUSCULAR HGB CONC 31.3 g/dl (32.0-37.0); MEAN CORPUSCULAR VOLUME 95.9 fl (82.0-101.0); MEAN PLATELET VOLUME 11.5 fl (7.4-10.4); MONOCYTE # 0.8 10^3/ul (0.3-0.9); MONOCYTES % 6.2 % (0.0-11.0); NEUTROPHIL # 10.3 10^3/ul (1.6-7.5); NEUTROPHILS % 79.4 % (39.0-77.0); PLATELET COUNT 197 10^3/UL (140-415); RED CELL DISTRIBUTION WIDTH 12.6 % (11.5-14.5)
[2016-12-25] MEDS: MANNITOL 25% IV SCH ×3 (06:36→18:12)
[2016-12-25] MEDS: EVAC CONTAINER IV SCH ×3 (06:36→18:12)
[2016-12-25 06:37] LABS: CALCIUM 7.7 mg/dl (8.4-10.2); CREATININE 0.69 mg/dl (0.44-1.00); POTASSIUM 3.5 mmol/L (3.5-5.1)
[2016-12-25] MEDS: NS + KCL 20 MEQ 1,000 ML IV SCH ×3 (07:23→20:10)
[2016-12-25] MEDS: PROPOFOL 100 ML IV SCH ×2 (07:24→18:00)
[2016-12-25] MEDS: DOCUSATE SODIUM 100 MG CAP PO SCH ×2 (07:32→19:25)
[2016-12-25] MEDS: ACETAMINOPHEN 1000MG/100ML IV 50 ML IVPB PRN (08:05)
--- NOTE | 2016-12-25 08:33 | PN ---
Date/Time of Note Date/Time of Note DATE: 12/25/16 TIME: 08:21 Assessment/Plan Lines/Catheters IV Catheter Type (from Rust): Peripheral IV Miner in Place (from Rust): Yes Assessment/Plan Chief Complaint/Hosp Course POD #4 s/p craniotomy for ICH evacuation. Neurologically no great improvement. Prognosis remains extremely poor. Pt is DNR but daughter wishes to continue care. Given overall prognosis, would not recommend any further neurosurgical procedure /intervention barring radicular clinical change which is improbable to occur. Continue medical supportive care. Anemia likely dilutional as > 2 liters positive. Would continue mannitol unless otherwise diuresed or decreased IVF. Problems: Subjective 24 Hr Interval Summary unresponsive, intubated. Exam/Review of Systems Vital Signs Vitals Vital Signs Date Time Temp Pulse Resp B/P Pulse Ox O2 Delivery O2 Flow Rate FiO2 12/25/16 08:00 100.0 66 19 133/56 100 Mechanical Ventilator 12/25/16 05:07 40 12/22/16 07:30 10.0 Intake and Output 12/24/16 12/24/16 12/25/16 15:00 23:00 07:00 Intake Total 945.5 ml 1130.6 ml 980 ml Output Total 800 ml 900 ml 825 ml Balance 145.5 ml 230.6 ml 155 ml Exam Head: other (incision C/d/I) Extremities: other (no spontaneosu purposeful movements. No eye opening to name , noxious stimuli or spontaneously. PERRL. ? weak right corneal. LUE slightly flexed to noxious stimuli, no ashley eposturing seen. ) Results Result Diagram: 12/25/16 0530 12/25/16 0530 JOSE NAVARRETE MD December 25, 2016 08:32
[2016-12-25] MEDS: LEVETIRACETAM 1000 MG (PMX) 100 ML IVPB SCH ×2 (09:29→20:11)
[2016-12-25 10:05] LABS: ALBUMIN 3.3 g/dl (3.3-4.9)
[2016-12-25 10:07] LABS: BILIRUBIN,INDIRECT 0.2 mg/dl (0-1.1); BILIRUBIN,TOTAL 0.2 mg/dl (0.2-1.3)
[2016-12-25 10:08] LABS: MAGNESIUM 2.8 mg/dl (1.7-2.5); TOTAL PROTEIN 5.6 g/dl (6.1-8.1)
--- NOTE | 2016-12-25 11:08 | CONS ---
Date/Time of Note Date/Time of Note DATE: 12/25/16 TIME: 11:05 Assessment/Plan Assessment/Plan Additional Assessment/Plan Ventilator setting; AC of 12, tidal volume 500, PEEP of 5, 40% FiO2. Assessment recommendations; 1. Patient admitted for respiratory failure due to massive intracranial hemorrhage. Status post surgery. 2. Extremely poor mental status. 3. History of hypertension. 4. Anemia. Continue supportive care. Prognosis is dismal. Consultation Date/Type/Reason Admit Date/Time December 22, 2016 at 06:45 Type of Consultation: Pulmonary/critical care 24 HR Interval Summary Free Text/Dictation Patient condition remains critical. Remains completely unresponsive. However no overt seizure activity noted. Patient has remained hemodynamically stable. General exam; elderly woman, orally intubated, unresponsive. Currently in no distress. Exam/Review of Systems Vital Signs Vitals Vital Signs Date Time Temp Pulse Resp B/P Pulse Ox O2 Delivery O2 Flow Rate FiO2 12/25/16 10:30 63 13 128/55 100 12/25/16 10:00 Mechanical Ventilator 12/25/16 08:00 100.0 12/25/16 05:07 40 12/22/16 07:30 10.0 Intake and Output 12/24/16 12/24/16 12/25/16 15:00 23:00 07:00 Intake Total 945.5 ml 1130.6 ml 980 ml Output Total 800 ml 900 ml 925 ml Balance 145.5 ml 230.6 ml 55 ml Exam H EENT exam; supple neck, no JVD. No lymphadenopathy. Midline trachea. No thyromegaly. Orally intubated. Pupils are small bilaterally. Chest examination; clear to auscultation. S1-S2 audible, no murmurs. Regular rhythm. Abdomen examination; soft, no organomegaly. Normal distended. Bowel sounds audible. Extremity exam; no peripheral edema. Pulses 1+ bilaterally. FUDGE CANDY MAKER examination; patient remains completely unresponsive. Results Result Diagram: 12/25/1652912/25/16529 Results 24 hrs Laboratory Tests Test 12/24/16 11:45 12/25/16 05:30 Osmolality White Blood Count 13.0 H Red Blood Count 2.70 L Hemoglobin 8.1 L Hematocrit 25.9 L Mean Corpuscular Volume 95.9 Mean Corpuscular Hemoglobin 30.0 Mean Corpuscular Hemoglobin Concent 31.3 L Red Cell Distribution Width 12.6 Platelet Count 197 Mean Platelet Volume 11.5 H Neutrophils % 79.4 H Lymphocytes % 13.4 L Monocytes % 6.2 Eosinophils % 0.2 Basophils % 0.3 Nucleated Red Blood Cells % 0.0 Neutrophils # 10.3 H Lymphocytes # 1.7 Monocytes # 0.8 Eosinophils # 0.0 Basophils # 0.0 Nucleated Red Blood Cells # 0.0 Sodium Level 144 Potassium Level 3.5 Chloride Level 117 H Carbon Dioxide Level 27 Anion Gap 4 L Blood Urea Nitrogen 10 Creatinine 0.69 Glucose Level 112 Calcium Level 7.7 L Magnesium Level 2.8 H Total Bilirubin 0.2 Direct Bilirubin 0.00 Indirect Bilirubin 0.2 Aspartate Amino Transf (AST/SGOT) 44 Alanine Aminotransferase (ALT/SGPT) 51 Alkaline Phosphatase 64 Total Protein 5.6 L Albumin 3.3 Medications Medications Current Medications Acetaminophen (Tylenol Liquid) 650 mg Q6H PRN PO PAIN LEVEL 1-3 OR FEVER; Start 12/22/16 at 08:00 Acetaminophen (Tylenol Supp) 650 mg Q4H PRN OR PAIN LEVEL 1-3 OR FEVER; Start 12/22/16 at 08:00 Magnesium Hydroxide (Milk Of Mag) 30 ml DAILY PRN PO CONSTIPATION; Start at 08:00 Pantoprazole (Protonix Iv) 40 mg DAILY@06 IV Last administered on 12/25/16 05: 19; Admin Dose 40 MG; Start 12/23/16 at 06:00 Docusate Sodium 100 mg 100 mg BID PO ; Start 12/22/16 at 09:00 Propofol (Diprivan) 100 ml @ 2.55 mls/hr Q12H IV Last administered on 07:24; Admin Dose 10.2 MLS/HR; Start 12/22/16 at 11:30 Morphine Sulfate (morphine) 2 mg Q2H PRN IV PAIN LEVEL 6-10 Last administered on 12/25/16 08:23; Admin Dose 2 MG; Start 12/22/16 at 13:00 Acetaminophen (Tylenol Tab) 650 mg Q6H PRN PO PAIN AND OR ELEVATED TEMP; Start 12/22/16 at 13:00 Ondansetron HCl (Zofran Inj) 4 mg Q6H PRN IV NAUSEA AND/OR VOMITING; Start at 13:00 Pantoprazole (Protonix Tab) 40 mg DAILY@06 PO ; Start 12/23/16 at 06:00; Status Future Hold Lorazepam 1 mg 1 mg Q1H PRN IV SEIZURES; Start 12/22/16 at 15:00 Potassium Chloride/Sodium Chloride 1,000 ml @ 100 mls/hr Q10H IV Last administered on 12/25/16 07:23; Admin Dose 100 MLS/HR; Start 12/22/16 at 20:30 Acetaminophen 50 ml @ 200 mls/hr Q6H PRN IVPB FEVER Last administered on 08:05; Admin Dose 200 MLS/HR; Start 12/22/16 at 21:00 Levetiracetam 100 ml @ 400 mls/hr Q12 IVPB Last administered on 12/25/16 09: 29; Admin Dose 400 MLS/HR; Start 12/23/16 at 14:30 Mannitol/N/A (Mannitol 25%/ Evac Container) 100 ml @ 100 mls/hr Q6 IV Last administered on 12/25/16 06:36; Admin Dose 100 MLS/HR; Start 12/24/16 at 12:00 THOMAS MCCAIN December 25, 2016 11:08
--- NOTE | 2016-12-25 11:31 | CONS ---
Date/Time of Note Date/Time of Note DATE: 12/25/16 TIME: 11:21 Consult Date/Type/Reason Admit Date/Time December 22, 2016 at 06:45 Initial Consult Date 12/23/16 Type of Consultation: Neurology Reason for Consultation ICH Subjective examined off propofol, no purposeful movements no improvement in neurologic exam Objective Vital Signs Date Time Temp Pulse Resp B/P Pulse Ox O2 Delivery O2 Flow Rate FiO2 12/25/16 10:30 63 13 128/55 100 12/25/16 10:00 Mechanical Ventilator 12/25/16 08:00 100.0 12/25/16 05:07 40 12/22/16 07:30 10.0 Intake and Output 12/24/16 12/24/16 12/25/16 15:00 23:00 07:00 Intake Total 945.5 ml 1130.6 ml 980 ml Output Total 800 ml 900 ml 925 ml Balance 145.5 ml 230.6 ml 55 ml Exam examined off propofol unable to open her eyes spontaneously to verbal stimuli or sternal rub no spontaneous movements noted breathing with ventilator CN: sluggish reactive pupils 1-2 mm bilaterally, oculocephalics are present, weak corneal present on the left strong gag reflex present Motor: extensor posturing in left arm to noxious stimuli triple flexion in left leg right arm is flaccid no response to noxious, right leg upgoing toe with noxious stimuli applied Results/Medications Result Diagram: 12/25/16 0530 12/25/1630 Results 24 hrs Laboratory Tests Test 12/24/16 11:45 12/25/16 05:30 Osmolality White Blood Count 13.0 H Red Blood Count 2.70 L Hemoglobin 8.1 L Hematocrit 25.9 L Mean Corpuscular Volume 95.9 Mean Corpuscular Hemoglobin 30.0 Mean Corpuscular Hemoglobin Concent 31.3 L Red Cell Distribution Width 12.6 Platelet Count 197 Mean Platelet Volume 11.5 H Neutrophils % 79.4 H Lymphocytes % 13.4 L Monocytes % 6.2 Eosinophils % 0.2 Basophils % 0.3 Nucleated Red Blood Cells % 0.0 Neutrophils # 10.3 H Lymphocytes # 1.7 Monocytes # 0.8 Eosinophils # 0.0 Basophils # 0.0 Nucleated Red Blood Cells # 0.0 Sodium Level 144 Potassium Level 3.5 Chloride Level 117 H Carbon Dioxide Level 27 Anion Gap 4 L Blood Urea Nitrogen 10 Creatinine 0.69 Glucose Level 112 Calcium Level 7.7 L Magnesium Level 2.8 H Total Bilirubin 0.2 Direct Bilirubin 0.00 Indirect Bilirubin 0.2 Aspartate Amino Transf (AST/SGOT) 44 Alanine Aminotransferase (ALT/SGPT) 51 Alkaline Phosphatase 64 Total Protein 5.6 L Albumin 3.3 Medications Current Medications Acetaminophen (Tylenol Liquid) 650 mg Q6H PRN PO PAIN LEVEL 1-3 OR FEVER; Start 12/22/16 at 08:00 Acetaminophen (Tylenol Supp) 650 mg Q4H PRN [place] PAIN LEVEL 1-3 OR FEVER; Start 12/22/16 at 08:00 Magnesium Hydroxide (Milk Of Mag) 30 ml DAILY PRN PO CONSTIPATION; Start at 08:00 Pantoprazole (Protonix Iv) 40 mg DAILY@06 IV Last administered on 12/25/16 05: 19; Admin Dose 40 MG; Start 12/23/16 at 06:00 Docusate Sodium 100 mg 100 mg BID PO ; Start 12/22/16 at 09:00 Propofol (Diprivan) 100 ml @ 2.55 mls/hr Q12H IV Last administered on 07:24; Admin Dose 10.2 MLS/HR; Start 12/22/16 at 11:30 Morphine Sulfate (morphine) 2 mg Q2H PRN IV PAIN LEVEL 6-10 Last administered on 12/25/16 08:23; Admin Dose 2 MG; Start 12/22/16 at 13:00 Acetaminophen (Tylenol Tab) 650 mg Q6H PRN PO PAIN AND OR ELEVATED TEMP; Start 12/22/16 at 13:00 Ondansetron HCl (Zofran Inj) 4 mg Q6H PRN IV NAUSEA AND/OR VOMITING; Start at 13:00 Pantoprazole (Protonix Tab) 40 mg DAILY@06 PO ; Start 12/23/16 at 06:00; Status Future Hold Lorazepam 1 mg 1 mg Q1H PRN IV SEIZURES; Start 12/22/16 at 15:00 Potassium Chloride/Sodium Chloride 1,000 ml @ 100 mls/hr Q10H IV Last administered on 12/25/16 07:23; Admin Dose 100 MLS/HR; Start 12/22/16 at 20:30 Acetaminophen 50 ml @ 200 mls/hr Q6H PRN IVPB FEVER Last administered on 08:05; Admin Dose 200 MLS/HR; Start 12/22/16 at 21:00 Levetiracetam 100 ml @ 400 mls/hr Q12 IVPB Last administered on 12/25/16 09: 29; Admin Dose 400 MLS/HR; Start 12/23/16 at 14:30 Mannitol/N/A (Mannitol 25%/ Evac Container) 100 ml @ 100 mls/hr Q6 IV Last administered on 12/25/16 06:36; Admin Dose 100 MLS/HR; Start 12/24/16 at 12:00 Assessment/Plan Additional Assessment/Plan 61 year old female with hypertension admitted with large left intracerebral hemorrhage with IVH requiring neurosurgical intervention s/p frontoparietal craniotomy POD #4 for ICH evacuation. -no improvement in neurologic exam, family aware of poor prognosis for a meaningful neurologic outcome -continue on Keppra prophylaxis 1g BID, will order a Routine EEG -maintain normotensive blood pressure, euglycemic, and afebrile -Code Status: DNR, will continue serial neurologic exams KYAW FUENTES MD December 25, 2016 11:31
[2016-12-26] VITALS (32 sets, daily range): BP systolic 48–221; BP diastolic 25–90; PULSE 54–132; RESP 5–29
[2016-12-26] MEDS: EVAC CONTAINER IV SCH ×2 (00:14→06:29)
[2016-12-26] MEDS: MANNITOL 25% IV SCH ×2 (00:14→06:29)
[2016-12-26] MEDS: morphine 2 MG INJ IV PRN ×2 (00:21→06:37)
[2016-12-26] MEDS: PROPOFOL 100 ML IV SCH ×2 (01:53→10:05)
[2016-12-26] MEDS: PANTOPRAZOLE 40 MG INJ IV SCH (05:33)
[2016-12-26 05:42] LABS: ADD SCAN DIFF NO
[2016-12-26 05:45] LABS: BASOPHILS % 0.3 % (0.0-2.0); EOSINOPHILS # 0.1 10^3/ul (0.0-0.5); EOSINOPHILS % 1.1 % (0.0-7.0); HEMATOCRIT 24.8 % (37.0-47.0); HEMOGLOBIN 7.6 g/dl (12.0-16.0); LYMPHOCYTES # 2.2 10^3/ul (0.8-2.9); LYMPHOCYTES % 18.6 % (15.0-51.0); MEAN CORPUSCULAR HEMOGLOBIN 29.6 pg (29.0-33.0); MEAN CORPUSCULAR HGB CONC 30.6 g/dl (32.0-37.0); MEAN CORPUSCULAR VOLUME 96.5 fl (82.0-101.0); MEAN PLATELET VOLUME 11.4 fl (7.4-10.4); MONOCYTE # 0.7 10^3/ul (0.3-0.9); MONOCYTES % 6.3 % (0.0-11.0); NEUTROPHIL # 8.5 10^3/ul (1.6-7.5); NEUTROPHILS % 73.3 % (39.0-77.0); PLATELET COUNT 199 10^3/UL (140-415); RED BLOOD COUNT 2.57 10^6/ul (4.20-5.40); RED CELL DISTRIBUTION WIDTH 12.6 % (11.5-14.5); WHITE BLOOD COUNT 11.6 10^3/ul (4.8-10.8)
[2016-12-26 06:02] LABS: INR 1.07; PROTIME 13.9 Sec (12.2-14.2); PT RATIO 1.1
[2016-12-26 06:04] LABS: PARTIAL THROMBOPLASTIN TIME 29.9 Sec (25.0-35.0)
[2016-12-26 06:15] LABS: CALCIUM 7.9 mg/dl (8.4-10.2); CREATININE 0.7 mg/dl (0.44-1.00); POTASSIUM 3.6 mmol/L (3.5-5.1)
[2016-12-26] MEDS: DOCUSATE SODIUM 100 MG CAP PO SCH (08:40)
[2016-12-26] MEDS: LEVETIRACETAM 1000 MG (PMX) 100 ML IVPB SCH ×3 (08:40→13:50)
--- NOTE | 2016-12-26 08:45 | PN ---
Date/Time of Note Date/Time of Note DATE: 12/26/16 TIME: 08:37 Assessment/Plan VTE Prophylaxis VTE Prophylaxis Intervention: SCD's VTE Contraindication Reason: hemorrhagic cerebral infarction Lines/Catheters IV Catheter Type (from [facility]): Peripheral IV Urinary Cath still in place: Yes Assessment/Plan Assessment/Plan This is an unfortunate 61-year-old female with a massive left-sided hemorrhagic stroke. 1. Large left-sided frontal parietal hemorrhagic stroke. * s/p craniotomy for ICH evacuation December 22, 2016 / no drain for now / patient on mannitol for edema per neurosurgery * Thought to be secondary to hypertension 2. Ventilator dependent respiratory failure secondary to #1: Remains ventilator dependent 3. Hypertensive emergency: Resolved / patient has good blood pressures right now / per family patient had no history of high blood pressure 4. Dyslipidemia chronic 5. Leukocytosis: Likely reactive / improving 6. Developing Hypernatremia: likely 2/2 #1 / f/u neurosurgery recs 7. Worsening anemia: likely dilutional per neurosurgery 8. DNR PLAN: * Continue ICU monitoring and care for now * Appreciate neurosurgical prompt input and management. Continue to follow recommendations. * Continue vent management * No current evidence of infection, plan for blood cultures as needed for fevers. * Family wants to speak with palliative care to discuss options. Will consult * Dire prognosis Prophylaxis: PPI/SCDs Critical care time: >35 minutes Subjective 24 Hr Interval Summary Free Text/Dictation Patient seen and examined. no new overnight findings Exam/Review of Systems Vital Signs Vitals Vital Signs Date Time Temp Pulse Resp B/P Pulse Ox O2 Delivery O2 Flow Rate FiO2 12/26/16 07:10 61 12 99 40 12/26/16 07:00 114/65 Mechanical Ventilator 12/26/16 06:00 99.2 12/22/16 07:30 10.0 Intake and Output 12/25/16 12/25/16 12/26/16 14:59 22:59 06:59 Intake Total 820 ml 585.50 ml 802.00 ml Output Total 850 ml 825 ml 875 ml Balance -30 ml -239.50 ml -73.00 ml Exam Constitutional: other (now off propofol), No alert, No oriented Eyes: other (mild swelling with sluggish pupil on the R) ENMT: intubated Respiratory: clear to auscultation, diminished breath sounds, No wheezing Cardiovascular: regular rate and rhythm, No murmurs/extra sounds Gastrointestinal: non-tender, soft, No bowel sounds Genitourinary - Female: other (mesa to bedside drainage) Extremities: edema (mild in hands and legs) Skin: No rash or lesions Results Result Diagram: 12/26/16 0530 12/26/16 0530 Results 24 hrs Laboratory Tests Test 12/26/16 05:30 White Blood Count 11.6 H Red Blood Count 2.57 L Hemoglobin 7.6 L Hematocrit 24.8 L Mean Corpuscular Volume 96.5 Mean Corpuscular Hemoglobin 29.6 Mean Corpuscular Hemoglobin Concent 30.6 L Red Cell Distribution Width 12.6 Platelet Count 199 Mean Platelet Volume 11.4 H Neutrophils % 73.3 Lymphocytes % 18.6 Monocytes % 6.3 Eosinophils % 1.1 Basophils % 0.3 Nucleated Red Blood Cells % 0.0 Neutrophils # 8.5 H Lymphocytes # 2.2 Monocytes # 0.7 Eosinophils # 0.1 Basophils # 0.0 Nucleated Red Blood Cells # 0.0 Prothrombin Time 13.9 Prothrombin Time Ratio 1.1 INR International Normalized Ratio 1.07 Activated Partial Thromboplast Time 29.9 Sodium Level 147 H Potassium Level 3.6 Chloride Level 117 H Carbon Dioxide Level 27 Anion Gap 7 L Blood Urea Nitrogen 12 Creatinine 0.70 Glucose Level 93 Calcium Level 7.9 L Medications Medications Current Medications Acetaminophen (Tylenol Liquid) 650 mg Q6H PRN PO PAIN LEVEL 1-3 OR FEVER; Start 12/22/16 at 08:00 Acetaminophen (Tylenol Supp) 650 mg Q4H PRN [place] PAIN LEVEL 1-3 OR FEVER; Start 12/22/16 at 08:00 Magnesium Hydroxide (Milk Of Mag) 30 ml DAILY PRN PO CONSTIPATION; Start at 08:00 Pantoprazole (Protonix Iv) 40 mg DAILY@06 IV Last administered on 12/26/16 05: 33; Admin Dose 40 MG; Start 12/23/16 at 06:00 Docusate Sodium 100 mg 100 mg BID PO ; Start 12/22/16 at 09:00 Propofol (Diprivan) 100 ml @ 2.55 mls/hr Q12H IV Last administered on 01:53; Admin Dose 12.6 MLS/HR; Start 12/22/16 at 11:30 Morphine Sulfate (morphine) 2 mg Q2H PRN IV PAIN LEVEL 6-10 Last administered on 12/26/16 06:37; Admin Dose 2 MG; Start 12/22/16 at 13:00 Acetaminophen (Tylenol Tab) 650 mg Q6H PRN PO PAIN AND OR ELEVATED TEMP; Start 12/22/16 at 13:00 Ondansetron HCl (Zofran Inj) 4 mg Q6H PRN IV NAUSEA AND/OR VOMITING; Start at 13:00 Pantoprazole (Protonix Tab) 40 mg DAILY@06 PO ; Start 12/23/16 at 06:00; Status Future Hold Lorazepam 1 mg 1 mg Q1H PRN IV SEIZURES; Start 12/22/16 at 15:00 Potassium Chloride/Sodium Chloride 1,000 ml @ 75 mls/hr [id number] IV Last administered on 12/25/16 20:10; Admin Dose 75 MLS/HR; Start 12/22/16 at 20:30 Acetaminophen 50 ml @ 200 mls/hr Q6H PRN IVPB FEVER Last administered on 08:05; Admin Dose 200 MLS/HR; Start 12/22/16 at 21:00 Levetiracetam 100 ml @ 400 mls/hr Q12 IVPB Last administered on 12/25/16 20: 11; Admin Dose 400 MLS/HR; Start 12/23/16 at 14:30 Mannitol/N/A (Mannitol 25%/ Evac Container) 100 ml @ 100 mls/hr Q6 IV Last administered on 12/26/16 06:29; Admin Dose 100 MLS/HR; Start 12/24/16 at 12:00 Procedures Procedures PROCEDURE: XR Chest. CLINICAL INDICATION: Adjusted endotracheal tube TECHNIQUE: Single AP view of the chest were obtained COMPARISON: 12/22/2016 FINDINGS: The heart and mediastinum are within normal limits. The pulmonary vasculature are unremarkable. The aorta demonstrates atherosclerotic calcifications. There is no lung consolidation, pleural effusion or pneumothorax. Degenerative changes are seen within the thoracic spine. There is no acute osseous abnormality. Endotracheal tube tip has been pulled back and terminates in the trachea above the az. gastric catheter is not visualized on this exam. It appears to have been removed. IMPRESSION: No acute disease. Endotracheal tube terminates within the mid trachea. Gastric catheters been removed. RPTAT: AA .Latha Childress MD, MD Date Time Electronically viewed and signed by .Latha Childress MD, MD on 12/23/2016 12:43 .J/ CC: MARIA GUADALUPE ARTHUR MD PROCEDURE: MRI Brain without contrast. CLINICAL INDICATION: Intracranial hemorrhage, status post craniotomy TECHNIQUE: Multiplanar MRI of the brain without contrast was performed on a 3.0 T scanner with the following sequences obtained: T1-weighted, T2-weighted/ FLAIR, diffusion weighted (with ADC map), GRE. COMPARISON: CT brain 12/23/2016, 12/22/2016 FINDINGS: Again demonstrated are postoperative changes with left frontal - temporal - parietal craniotomy with overlying scalp swelling and gas, small extra-axial hemorrhage underneath the craniotomy measuring up to approximately 5 mm residual small amount of pneumocephalus in the left frontal region. Decompression of underlying intraparenchymal hematoma with residual areas of hemorrhage redemonstrated in the left frontal, temporal, parietal, as well as sub insular region with hemorrhage extending across the posterior left lentiform nucleus and posterior limb of the left internal capsule into the upper left mid brain. There is mild-moderate surrounding edema. There is persistent mass effect with residual partial lateral ventricular effacement, left greater than right, and partial third ventricular effacement. There is shift of the septum pellucidum to the right measuring up to 8 mm. There is hemorrhage in the left left lateral ventricle, and small amount of hemorrhage in the occipital horn of the right lateral ventricle. There is minimal left tentorial subdural hemorrhage. Given differences in technique, these findings are not significantly changed. There are areas of restricted diffusion within the areas of edema surrounding the parenchymal hemorrhage, along with additional very small foci in the anterior left basal ganglia, suggestive of superimposed ischemic changes. Minimal scattered areas of increased T2-weighted FLAIR signal intensity are identified in the deep white matter which are nonspecific. There are flow voids in the right cerebellar hemisphere with a configuration compatible with a developmental venous anomaly. There is a punctate focus susceptibility consistent with chronic hemorrhage in the medial right cerebellum in the vermis region consistent with chronic hemorrhage. Flow voids are visible in the proximal intracranial arteries and dural sinuses suggesting patency. There is scattered partial bilateral mastoid air cell opacification and a large right maxillary sinus mucous retention cyst. IMPRESSION: 1. Postoperative changes, status post left frontal - temporal - parietal craniotomy and underlying intraparenchymal hematoma decompression with small extra-axial hemorrhage underneath the craniotomy and small amount of left frontal pneumocephalus without significant change. 2. Residual intraparenchymal hemorrhage in the left frontal - temporal - parietal and sub insular regions extending across the left basal ganglia/ internal capsule to the upper left mid brain with mild to moderate surrounding edema, not significantly changed. 3. Areas of restricted diffusion within the edema surrounding the intraparenchymal hemorrhage, with additional very small foci in the left basal ganglia, suggesting superimposed ischemic changes. 4. Intraventricular hemorrhage in the lateral ventricles, left greater than right, without significant change. 5. Minimal left tentorial subdural hemorrhage, without significant change. 6. Rightward midline shift, without significant change. 7. Incidental right cerebellar developmental venous anomaly. 8. Chronic micro hemorrhage in the right cerebellum. 9. Minimal nonspecific white matter changes which may reflect chronic small vessel ischemic changes. RPTAT: VV .Silvio Hernandez MD, Date Time Electronically viewed and signed by .Silvio Hernandez MD, MD on 12/24/2016 09:50 .O/ CC: JOSE NAVARRETE MD, BOLATITO M. Dec 26, 2016 08:45
--- NOTE | 2016-12-26 08:55 | EN ---
Date/Time of Note Date/Time of Note DATE: 12/26/16 TIME: 08:49 Event Note Medicine Medicine Event Note LATE PROGRESS NOTE DATE OF SERVICE:12/25/16 SUBJECTIVE: Spoke with daughter at bedside regarding possibility of starting tube feedings. Family aware of terminal condition and I do not think that feedings will change patient's overall condition. I agree with the thought. So for now continue supportive measures as family come together to make a decision regarding goals of care. No other concerns verbalized are noted. Patient remains off sedation and off pressors. OBJECTIVE: Vital Signs Vitals Vital Signs Date Time Temp Pulse Resp B/P Pulse Ox O2 Delivery O2 Flow Rate FiO2 12/25/16 10:30 63 13 128/55 100 12/25/16 10:00 Mechanical Ventilator 12/25/16 08:00 100.0 12/25/16 05:07 40 12/22/16 07:30 10.0 Intake and Output 12/24/16 12/24/16 12/25/16 15:00 23:00 07:00 Intake Total 945.5 ml 1130.6 ml 980 ml Output Total 800 ml 900 ml 925 ml Balance 145.5 ml 230.6 ml 55 ml Exam Constitutional: other (no purposeful movement off sedation), No alert, No oriented Psych: other (Unable to assess) Eyes: other (Left foot peel is brisk, right is sluggish) ENMT: intubated Respiratory: clear to auscultation, normal air movement Cardiovascular: nl pulses, No murmurs/extra sounds, No regular rate and rhythm (Tachycardic) Gastrointestinal: bowel sounds, soft, No distended Genitourinary - Female: nl adnexae, nl external genitalia, other (Miner to bedside drainage with good urine output) Musculoskeletal: nl extremities to inspection Extremities: mild edema in hands and feet Neurological: other (Unable to assess deficits at this time), unresponsive Skin: No rash or lesions Results Result Diagram: 12/25/1652912/25/1630 Results 24 hrs Laboratory Tests Test 12/24/16 11:45 12/25/16 05:30 Osmolality White Blood Count 13.0 H Red Blood Count 2.70 L Hemoglobin 8.1 L Hematocrit 25.9 L Mean Corpuscular Volume 95.9 Mean Corpuscular Hemoglobin 30.0 Mean Corpuscular Hemoglobin Concent 31.3 L Red Cell Distribution Width 12.6 Platelet Count 197 Mean Platelet Volume 11.5 H Neutrophils % 79.4 H Lymphocytes % 13.4 L Monocytes % 6.2 Eosinophils % 0.2 Basophils % 0.3 Nucleated Red Blood Cells % 0.0 Neutrophils # 10.3 H Lymphocytes # 1.7 Monocytes # 0.8 Eosinophils # 0.0 Basophils # 0.0 Nucleated Red Blood Cells # 0.0 Sodium Level 144 Potassium Level 3.5 Chloride Level 117 H Carbon Dioxide Level 27 Anion Gap 4 L Blood Urea Nitrogen 10 Creatinine 0.69 Glucose Level 112 Calcium Level 7.7 L Magnesium Level 2.8 H Total Bilirubin 0.2 Direct Bilirubin 0.00 Indirect Bilirubin 0.2 Aspartate Amino Transf (AST/SGOT) 44 Alanine Aminotransferase (ALT/SGPT) 51 Alkaline Phosphatase 64 Total Protein 5.6 L Albumin 3.3 Medications Medications Current Medications Acetaminophen (Tylenol Liquid) 650 mg Q6H PRN PO PAIN LEVEL 1-3 OR FEVER; Start 12/22/16 at 08:00 Acetaminophen (Tylenol Supp) 650 mg Q4H PRN [place] PAIN LEVEL 1-3 OR FEVER; Start 12/22/16 at 08:00 Magnesium Hydroxide (Milk Of Mag) 30 ml DAILY PRN PO CONSTIPATION; Start at 08:00 Pantoprazole (Protonix Iv) 40 mg DAILY@06 IV Last administered on 12/25/16 05: 19; Admin Dose 40 MG; Start 12/23/16 at 06:00 Docusate Sodium 100 mg 100 mg BID PO ; Start 12/22/16 at 09:00 Propofol (Diprivan) 100 ml @ 2.55 mls/hr Q12H IV Last administered on 07:24; Admin Dose 10.2 MLS/HR; Start 12/22/16 at 11:30 Morphine Sulfate (morphine) 2 mg Q2H PRN IV PAIN LEVEL 6-10 Last administered on 12/25/16 08:23; Admin Dose 2 MG; Start 12/22/16 at 13:00 Acetaminophen (Tylenol Tab) 650 mg Q6H PRN PO PAIN AND OR ELEVATED TEMP; Start 12/22/16 at 13:00 Ondansetron HCl (Zofran Inj) 4 mg Q6H PRN IV NAUSEA AND/OR VOMITING; Start at 13:00 Pantoprazole (Protonix Tab) 40 mg DAILY@06 PO ; Start 12/23/16 at 06:00; Status Future Hold Lorazepam 1 mg 1 mg Q1H PRN IV SEIZURES; Start 12/22/16 at 15:00 Potassium Chloride/Sodium Chloride 1,000 ml @ 100 mls/hr Q10H IV Last administered on 12/25/16 07:23; Admin Dose 100 MLS/HR; Start 12/22/16 at 20:30 Acetaminophen 50 ml @ 200 mls/hr Q6H PRN IVPB FEVER Last administered on 08:05; Admin Dose 200 MLS/HR; Start 12/22/16 at 21:00 Levetiracetam 100 ml @ 400 mls/hr Q12 IVPB Last administered on 12/25/16 09: 29; Admin Dose 400 MLS/HR; Start 12/23/16 at 14:30 Mannitol/N/A (Mannitol 25%/ Evac Container) 100 ml @ 100 mls/hr Q6 IV Last administered on 12/25/16 06:36; Admin Dose 100 MLS/HR; Start 12/24/16 at 12:00 ASSESSMENT: This is an unfortunate 61-year-old female with a massive left-sided hemorrhagic stroke. 1. Large left-sided frontal parietal hemorrhagic stroke. * s/p craniotomy for ICH evacuation December 22, 2016 / no drain for now / patient on mannitol for edema per neurosurgery * Thought to be secondary to hypertension 2. Ventilator dependent respiratory failure secondary to #1: Remains ventilator dependent 3. Hypertensive emergency: Resolved / patient has good blood pressures right now / per family patient had no history of high blood pressure 4. Dyslipidemia chronic 5. Leukocytosis: Likely reactive / improving 6. Hypomagnesemia: We will replace PLAN: * Continue ICU monitoring and care for now * Appreciate neurosurgical prompt input and management. Continue to follow recommendations. * Continue vent management, patient unlikely to tolerate weaning. * No current evidence of infection, plan for blood cultures as needed for fevers. * Monitor electrolytes * Monitor dropping hemoglobin levels, per neurosurgery likely dilutional * Patient is now DO NOT RESUSCITATE per family * Family aware of the prognosis, working on treatment goals and plan. * In the interim, continue supportive care * Treatment plan discussed with family, questions answered. Prophylaxis: PPI/SCDs Critical care time: >35 minutes TY BECERRA Dec 26, 2016 08:55
--- NOTE | 2016-12-26 11:04 | CONS ---
Date/Time of Note Date/Time of Note DATE: 12/26/16 TIME: 11:02 Assessment/Plan Assessment/Plan Additional Assessment/Plan Ventilator setting; AC of 12, tidal volume 500, PEEP of 5, 40% FiO2. Assessment recommendations; 1. Patient admitted with massive intracranial hemorrhage leading to respiratory failure. 2. No overt seizure activity noted. 3. History of hypertension. 4. Anemia. Continue supportive care. Patient's family likely will opt for terminal expiration. Prognosis is dismal. Consultation Date/Type/Reason Admit Date/Time December 22, 2016 at 06:45 Type of Consultation: Pulmonary/critical care 24 HR Interval Summary Free Text/Dictation Patient condition remains critical. Remains completely unresponsive. Patient however has remained hemodynamically stable. Next General exam; elderly lady, orally intubated, unresponsive, currently in no distress. Exam/Review of Systems Vital Signs Vitals Vital Signs Date Time Temp Pulse Resp B/P Pulse Ox O2 Delivery O2 Flow Rate FiO2 12/26/16 09:55 63 13 100 40 12/26/16 08:00 129/81 Mechanical Ventilator 12/26/16 06:00 99.2 12/22/16 07:30 10.0 Intake and Output 12/25/16 12/25/16 12/26/16 15:00 23:00 07:00 Intake Total 720 ml 663.25 ml 802.00 ml Output Total 850 ml 875 ml 825 ml Balance -130 ml -211.75 ml -23.00 ml Exam HEENT examination; supple neck, no JVD. No lymphadenopathy. Midline trachea. No thyromegaly. Orally intubated. Pupils are small bilaterally. No neck masses. Chest examination; clear to auscultation. S1-S2 audible, no murmurs. Regular rhythm. Abdomen examination; soft, nondistended. No organomegaly. Bowel sounds audible. Extremity examination; no peripheral edema. Pulses 1+ bilaterally. EDITOR PRODUCER examination; patient remains completely unresponsive. Results Result Diagram: 12/26/16 0530 12/26/16 0530 Results 24 hrs Laboratory Tests Test 12/26/16 05:30 White Blood Count 11.6 H Red Blood Count 2.57 L Hemoglobin 7.6 L Hematocrit 24.8 L Mean Corpuscular Volume 96.5 Mean Corpuscular Hemoglobin 29.6 Mean Corpuscular Hemoglobin Concent 30.6 L Red Cell Distribution Width 12.6 Platelet Count 199 Mean Platelet Volume 11.4 H Neutrophils % 73.3 Lymphocytes % 18.6 Monocytes % 6.3 Eosinophils % 1.1 Basophils % 0.3 Nucleated Red Blood Cells % 0.0 Neutrophils # 8.5 H Lymphocytes # 2.2 Monocytes # 0.7 Eosinophils # 0.1 Basophils # 0.0 Nucleated Red Blood Cells # 0.0 Prothrombin Time 13.9 Prothrombin Time Ratio 1.1 INR International Normalized Ratio 1.07 Activated Partial Thromboplast Time 29.9 Sodium Level 147 H Potassium Level 3.6 Chloride Level 117 H Carbon Dioxide Level 27 Anion Gap 7 L Blood Urea Nitrogen 12 Creatinine 0.70 Glucose Level 93 Calcium Level 7.9 L Medications Medications Current Medications Acetaminophen (Tylenol Liquid) 650 mg Q6H PRN PO PAIN LEVEL 1-3 OR FEVER; Start 12/22/16 at 08:00 Acetaminophen (Tylenol Supp) 650 mg Q4H PRN [place] PAIN LEVEL 1-3 OR FEVER; Start 12/22/16 at 08:00 Magnesium Hydroxide (Milk Of Mag) 30 ml DAILY PRN PO CONSTIPATION; Start at 08:00 Pantoprazole (Protonix Iv) 40 mg DAILY@06 IV Last administered on 12/26/16 05: 33; Admin Dose 40 MG; Start 12/23/16 at 06:00 Docusate Sodium 100 mg 100 mg BID PO ; Start 12/22/16 at 09:00 Propofol (Diprivan) 100 ml @ 2.55 mls/hr Q12H IV Last administered on 10:05; Admin Dose 12.75 MLS/HR; Start 12/22/16 at 11:30 Morphine Sulfate (morphine) 2 mg Q2H PRN IV PAIN LEVEL 6-10 Last administered on 12/26/16 06:37; Admin Dose 2 MG; Start 12/22/16 at 13:00 Acetaminophen (Tylenol Tab) 650 mg Q6H PRN PO PAIN AND OR ELEVATED TEMP; Start 12/22/16 at 13:00 Ondansetron HCl (Zofran Inj) 4 mg Q6H PRN IV NAUSEA AND/OR VOMITING; Start at 13:00 Pantoprazole (Protonix Tab) 40 mg DAILY@06 PO ; Start 12/23/16 at 06:00; Status Future Hold Lorazepam 1 mg 1 mg Q1H PRN IV SEIZURES; Start 12/22/16 at 15:00 Potassium Chloride/Sodium Chloride 1,000 ml @ 75 mls/hr [id number] IV Last administered on 12/25/16 20:10; Admin Dose 75 MLS/HR; Start 12/22/16 at 20:30 Acetaminophen 50 ml @ 200 mls/hr Q6H PRN IVPB FEVER Last administered on 08:05; Admin Dose 200 MLS/HR; Start 12/22/16 at 21:00 Levetiracetam 100 ml @ 400 mls/hr Q12 IVPB Last administered on 12/25/16 20: 11; Admin Dose 400 MLS/HR; Start 12/23/16 at 14:30 Mannitol/N/A (Mannitol 25%/ Evac Container) 100 ml @ 100 mls/hr Q6 IV Last administered on 12/26/16 06:29; Admin Dose 100 MLS/HR; Start 12/24/16 at 12:00 THOMAS MCCAIN Dec 26, 2016 11:04
--- NOTE | 2016-12-26 11:42 | CONS ---
Date/Time of Note Date/Time of Note DATE: 12/26/16 TIME: 11:39 Consult Date/Type/Reason Admit Date/Time December 22, 2016 at 06:45 Initial Consult Date 12/23/16 Type of Consultation: Neurology Reason for Consultation ICH Subjective planning for comfort care measures Objective Vital Signs Date Time Temp Pulse Resp B/P Pulse Ox O2 Delivery O2 Flow Rate FiO2 12/26/16 09:55 63 13 100 40 12/26/16 08:00 129/81 Mechanical Ventilator 12/26/16 06:00 99.2 12/22/16 07:30 10.0 Intake and Output 12/25/16 12/25/16 12/26/16 15:00 23:00 07:00 Intake Total 720 ml 663.25 ml 802.00 ml Output Total 850 ml 875 ml 825 ml Balance -130 ml -211.75 ml -23.00 ml Exam unable to open her eyes spontaneously to verbal stimuli or sternal rub no spontaneous movements noted breathing with ventilator CN: sluggish reactive pupils 1-2 mm bilaterally, oculocephalics are present, weak corneal present on the left strong gag reflex present Motor: extensor posturing in left arm to noxious stimuli triple flexion in left leg right arm is flaccid no response to noxious, right leg upgoing toe with noxious stimuli applied Results/Medications Result Diagram: 12/26/1630 12/26/16 0530 Results 24 hrs Laboratory Tests Test 12/26/16 05:30 White Blood Count 11.6 H Red Blood Count 2.57 L Hemoglobin 7.6 L Hematocrit 24.8 L Mean Corpuscular Volume 96.5 Mean Corpuscular Hemoglobin 29.6 Mean Corpuscular Hemoglobin Concent 30.6 L Red Cell Distribution Width 12.6 Platelet Count 199 Mean Platelet Volume 11.4 H Neutrophils % 73.3 Lymphocytes % 18.6 Monocytes % 6.3 Eosinophils % 1.1 Basophils % 0.3 Nucleated Red Blood Cells % 0.0 Neutrophils # 8.5 H Lymphocytes # 2.2 Monocytes # 0.7 Eosinophils # 0.1 Basophils # 0.0 Nucleated Red Blood Cells # 0.0 Prothrombin Time 13.9 Prothrombin Time Ratio 1.1 INR International Normalized Ratio 1.07 Activated Partial Thromboplast Time 29.9 Sodium Level 147 H Potassium Level 3.6 Chloride Level 117 H Carbon Dioxide Level 27 Anion Gap 7 L Blood Urea Nitrogen 12 Creatinine 0.70 Glucose Level 93 Calcium Level 7.9 L Medications Current Medications Acetaminophen (Tylenol Liquid) 650 mg Q6H PRN PO PAIN LEVEL 1-3 OR FEVER; Start 12/22/16 at 08:00 Acetaminophen (Tylenol Supp) 650 mg Q4H PRN [place] PAIN LEVEL 1-3 OR FEVER; Start 12/22/16 at 08:00 Magnesium Hydroxide (Milk Of Mag) 30 ml DAILY PRN PO CONSTIPATION; Start at 08:00 Pantoprazole (Protonix Iv) 40 mg DAILY@06 IV Last administered on 12/26/16 05: 33; Admin Dose 40 MG; Start 12/23/16 at 06:00 Docusate Sodium 100 mg 100 mg BID PO ; Start 12/22/16 at 09:00 Propofol (Diprivan) 100 ml @ 2.55 mls/hr Q12H IV Last administered on 10:05; Admin Dose 12.75 MLS/HR; Start 12/22/16 at 11:30 Morphine Sulfate (morphine) 2 mg Q2H PRN IV PAIN LEVEL 6-10 Last administered on 12/26/16 06:37; Admin Dose 2 MG; Start 12/22/16 at 13:00 Acetaminophen (Tylenol Tab) 650 mg Q6H PRN PO PAIN AND OR ELEVATED TEMP; Start 12/22/16 at 13:00 Ondansetron HCl (Zofran Inj) 4 mg Q6H PRN IV NAUSEA AND/OR VOMITING; Start at 13:00 Pantoprazole (Protonix Tab) 40 mg DAILY@06 PO ; Start 12/23/16 at 06:00; Status Future Hold Lorazepam 1 mg 1 mg Q1H PRN IV SEIZURES; Start 12/22/16 at 15:00 Potassium Chloride/Sodium Chloride 1,000 ml @ 75 mls/hr [id number] IV Last administered on 12/25/16 20:10; Admin Dose 75 MLS/HR; Start 12/22/16 at 20:30 Acetaminophen 50 ml @ 200 mls/hr Q6H PRN IVPB FEVER Last administered on 08:05; Admin Dose 200 MLS/HR; Start 12/22/16 at 21:00 Levetiracetam 100 ml @ 400 mls/hr Q12 IVPB Last administered on 12/25/16 20: 11; Admin Dose 400 MLS/HR; Start 12/23/16 at 14:30 Mannitol/N/A (Mannitol 25%/ Evac Container) 100 ml @ 100 mls/hr Q6 IV Last administered on 12/26/16 06:29; Admin Dose 100 MLS/HR; Start 12/24/16 at 12:00 Assessment/Plan Chief Complaint/Hosp Course 61 year old female with hypertension admitted with large left intracerebral hemorrhage with IVH requiring neurosurgical intervention s/p frontoparietal craniotomy POD #5 for ICH evacuation. -no improvement in neurologic exam, family aware of poor prognosis for a meaningful neurologic outcome -EEG cancelled, will plan on pursuing comfort measures family awaiting to speak with palliative care, advised family i am available to speak with them should any further questions/concerns arise thank you for involving us in her care Problems: KYAW FUENTES MD Dec 26, 2016 11:42
[2016-12-26] MEDS ORDERED: LORAZEPAM (MDV) 60 MG in DEXTROSE 5% 30 ML IV SCH (12:00)
[2016-12-26] MEDS ORDERED: morphine (DRIP) 100 MG/100 ML 100 ML IV SCH (12:00)
[2016-12-26] MEDS ORDERED: MIDAZOLAM (DRIP) 50 mg/50 mL 50 ML IV SCH (12:30)
[2016-12-26] MEDS ORDERED: LORAZEPAM 2 MG INJ ONE ×3 (13:05→13:41)
[2016-12-26] MEDS: LORAZEPAM 2 MG INJ IV PRN ×6 (13:35→14:04)
[2016-12-26] MEDS ORDERED: FENTAnyl (DRIP) 1000 mcg/100mL 100 ML IV SCH (14:00)
--- NOTE | 2016-12-26 19:17 | QN ---
Documentation Comment Call to pronounce patient after terminal extubation Exam: Constitutional: other (unresponsive to deep sternal rub) Eyes: other (pupils fixed and dilated after at least 45s) Neck: other (no carotid pulses palpated or ascultated after at least 45s) Respiratory: other (no respiratory effort noted or ascultated after at least 45s) Cardiovascular: other (no cardiac pulses ascultated after at least 45s) Extremities: other (no femoral pulses palpated after at least 45s ) Neurological: unresponsive Assessment/Plan Patient Pronounced at 1520 summary per primary attending. TY BECERRA Dec 26, 2016 19:17
--- NOTE | 2016-12-26 19:22 | DES ---
Date/Time of Note Date/Time of Note DATE: 12/26/16 TIME: 19:17 Discharge/ Summary Admission/Discharge Info Admit Date/Time December 22, 2016 at 06:45 Discharge Date/Time Dec 26, 2016 at 15:20 Final Diagnosis 1. Large left-sided frontal parietal hemorrhagic stroke. * s/p craniotomy for ICH evacuation December 22, 2016 / no drain for now / patient on mannitol for edema per neurosurgery * Thought to be secondary to hypertension 2. Ventilator dependent respiratory failure secondary to #1 3. Hypertensive emergency: Resolved / patient has good blood pressures right now / per family patient had no history of high blood pressure 4. Dyslipidemia chronic 5. Leukocytosis: Likely reactive 6. Developing Hypernatremia: likely 2/2 #1 7. Worsening anemia: likely dilutional per neurosurgery 8. DNR Preliminary Cause of Intracerebral hemorrhage secondary to hypertension. . Hospital Course 61-year-old femaleWho was brought in by ambulance after being found obtunded by her and was found to have large intracerebral bleed thought to be secondary to high blood pressure. She was emergently taken to the operating room where she underwent craniotomy for evacuation of intracranial hemorrhage. However despite aggressive emergent intervention, the patient's did not do well. Her mentation never improved and she was ventilator dependent for all of her hospital course. The neurosurgeon and neurologist review the patient multiple times and explained that prognosis to the family. Eventually family opted for terminal extubation, this was done today and patient passed a few hours after. . Pending Labs/Cultures Laboratory Tests Test 12/26/16 05:30 12/26/16 12:01 12/26/16 12:03 White Blood Count 11.610^3/ul (4.8-10.8) Red Blood Count 2.5710^6/ul (4.20-5.40) Hemoglobin 7.6g/dl (12.0-16.0) Hematocrit 24.8% (37.0-47.0) Mean Corpuscular Volume 96.5fl (82.0-101.0) Mean Corpuscular Hemoglobin 29.6pg (29.0-33.0) Mean Corpuscular Hemoglobin Concent 30.6g/dl (32.0-37.0) Red Cell Distribution Width 12.6% (11.5-14.5) Platelet Count 17629^3/UL (140-415) Mean Platelet Volume 11.4fl (7.4-10.4) Neutrophils % 73.3% (39.0-77.0) Lymphocytes % 18.6% (15.0-51.0) Monocytes % 6.3% (0.0-11.0) Eosinophils % 1.1% (0.0-7.0) Basophils % 0.3% (0.0-2.0) Nucleated Red Blood Cells % 0.0/100WBC (0.0-0.0) Neutrophils # 8.510^3/ul (1.6-7.5) Lymphocytes # 2.210^3/ul (0.8-2.9) Monocytes # 0.710^3/ul (0.3-0.9) Eosinophils # 0.110^3/ul (0.0-0.5) Basophils # 0.010^3/ul (0.0-0.1) Nucleated Red Blood Cells # 0.010^3/ul (0.0-0.0) Prothrombin Time 13.9Sec (12.2-14.2) Prothrombin Time Ratio 1.1 INR International Normalized Ratio 1.07 Activated Partial Thromboplast Time 29.9Sec (25.0-35.0) Sodium Level 147mmol/L (135-144) Potassium Level 3.6mmol/L (3.5-5.1) Chloride Level 117mmol/L (97-110) Carbon Dioxide Level 27mmol/L (21-31) Anion Gap 7 (8-16) Blood Urea Nitrogen 12mg/dl (7-20) Creatinine 0.70mg/dl (0.44-1.00) Glucose Level 93mg/dl (70-220) Calcium Level 7.9mg/dl (8.4-10.2) Lab Scanned Report REFERENCE [id number] REFERENCE [id number] TY BECERRA Dec 26, 2016 19:22
== END 2016-12-26 15:20 | disposition expired | DRG 23 ==
LOC: E/R 05:11 → ICU 06:45
PROVIDERS: ADMIT Internal Medicine; ATTEND Internal Medicine
PROC: 0BH17EZ Insertion of Endotracheal Airway into Trachea, Via Natural or Artificial Opening (ICD-10-PCS; 2016-12-22)
PROC: 5A1955Z Respiratory Ventilation, Greater than 96 Consecutive Hours (ICD-10-PCS; 2016-12-22)
PROC: 00C40ZZ Extirpation of Matter from Intracranial Subdural Space, Open Approach (ICD-10-PCS; principal; 2016-12-22 09:00)
DX: I61.1 Nontraumatic intracerebral hemorrhage in hemisphere, cortical (principal); J96.01 Acute respiratory failure with hypoxia; Z99.11 Dependence on respirator [ventilator] status; I16.1 Hypertensive emergency; F17.210 Nicotine dependence, cigarettes, uncomplicated; E78.5 Hyperlipidemia, unspecified; E83.42 Hypomagnesemia; Z90.49 Acquired absence of other specified parts of digestive tract
CPT/HCPCS: 31500; 36415; 36600; 70450; 70551; 71010; 80048; 80053; 80076; 80306; 80307; 81003; 82803; 82962; 83036; 83605; 83735; 83930; 84100; 84443; 85025; 85610; 85730; 86850; 86900; 86901; 86920; 87040; 93005; 93306; 94002; 94003; 94770; 96374; 96375; C1713; C9113; J0131; J0690; J1644; J1953; J2060; J2150; J2270; J3010; J3475; J3480; J7030; J7042; J7050; J7070